=== PATIENT | female | born 1965 | race Caucasian/White ===

== ENCOUNTER → 2018-01-08 09:52 | Outpatient (CLI) | payer BC, SELFPAY ==
--- NOTE | 2018-01-08 09:54 | DI.RAD.S_ITS ---
PROCEDURE: XR KNEE RT 3V INDICATIONS: Chronic pain and problems with flexion TECHNIQUE: 3 views of the knee were acquired. COMPARISON: None. FINDINGS: Bones: No fractures or dislocations. No suspicious bony lesions. Mild narrowing of the medial joint space Soft tissues: No joint effusion. No suspicious soft tissue calcifications. IMPRESSION: Mild degenerative joint disease. Dictated by: Freddie Westfall M.D. on 01/08/2018 at 12:56 Approved by: Freddie Westfall M.D. on 01/08/2018 at 12:57
--- NOTE | 2018-01-08 09:54 | DI.RAD.S_ITS ---
PROCEDURE: XR KNEE LT 3V INDICATIONS: Chronic pain and problems with flexion TECHNIQUE: 3 views of the knee were acquired. COMPARISON: None. FINDINGS: Bones: No fractures or dislocations. No suspicious bony lesions. Mild narrowing of the medial lateral joint spaces, with subchondral sclerosis Soft tissues: No joint effusion. No suspicious soft tissue calcifications. IMPRESSION: Mild left knee joint degeneration. Dictated by: Freddie Westfall M.D. on 01/08/2018 at 12:55 Approved by: Freddie Westfall M.D. on 01/08/2018 at 12:56
== END ==
PROVIDERS: PCP Family Medicine; Visit Provider Nurse Practitioner Family
DX: M17.0 Bilateral primary osteoarthritis of knee (principal)
CPT/HCPCS: 73562

== ENCOUNTER → 2018-08-07 11:31 | Outpatient (CLI) | payer BC, SELFPAY ==
[2018-08-07 12:08] LABS: Add Manual Diff / Slide Review NO; Eosinophils Percent Auto 0.8 % (2-4); Hematocrit 44.9 % (36-46); Hemoglobin 15.7 g/dL (12.0-16.0); Lymphocytes Percent Auto 45.8 % (25-40); Mean Corpuscular Hemoglobin 30.5 PG (26-34); Mean Corpuscular Volume 87.2 fL (80-100); Monocytes Percent Auto 5.5 % (3-14); Neutrophils Absolute Auto 2300 /uL (1500-7000); Neutrophils Percent Auto 46.9 % (50-75); Platelet Count 197 X10^3/uL (150-400); Red Blood Cell Count 5.14 X10^6/uL (4.0-5.2); White Blood Cell Count 4.9 X10^3/uL (4.5-11.0)
[2018-08-07 12:33] LABS: Alanine Aminotransferase 35 IU/L (9-52); Albumin 4.2 g/dL (3.5-5.0); Albumin Globulin Ratio 1.7 (1.0-2.8); Alkaline Phosphatase 67 U/L (38-126); Aspartate Aminotransferase 27 IU/L (14-36); Bilirubin Total 0.7 mg/dL (0.2-1.3); Blood Urea Nitrogen 14 mg/dL (7-17); Calcium 9.4 mg/dL (8.4-10.2); Carbon Dioxide 28 mmol/L (22-32); Chloride 104 mmol/L (98-107); Cholesterol 185 mg/dL (140-199); Estimated Glomerular Filt Rate > 60.0 mL/min (>60); Globulin 2.5 g/dL (1.7-4.1); Glucose 84 mg/dL (70-100); HDL Cholesterol 60 mg/dL (40-60); HEMOLYSIS < 15 (0-50); LDL Cholesterol Calculated 104 mg/dL (<100); Potassium 4.5 mmol/L (3.4-5.1); Sodium 144 mmol/L (137-145); Total Protein 6.7 g/dL (6.3-8.2); Triglycerides 103 mg/dL (35-150)
[2018-08-07 12:46] LABS: Vitamin D 25 Hydroxy (D3) 66.6 ng/mL (30.0-100.0)
[2018-08-07 13:00] LABS: TSH w/ Reflex to FT4 1.06 uIU/mL (0.47-4.68)
== END ==
PROVIDERS: PCP Family Medicine; Visit Provider Family Medicine
DX: E03.9 Hypothyroidism, unspecified (principal); E78.1 Pure hyperglyceridemia; F32.9 Major depressive disorder, single episode, unspecified; M79.7 Fibromyalgia; G47.19 Other hypersomnia
CPT/HCPCS: 36415; 80053; 80061; 82306; 84443; 85014; 85018; 85025

== ENCOUNTER → 2019-04-12 11:39 | Outpatient (CLI) | payer BC, SELFPAY ==
--- NOTE | 2019-04-12 11:41 | DI.RAD.S_ITS ---
PROCEDURE: XR LUMBAR SPINE 2-3V INDICATIONS: l bp TECHNIQUE: 3 views of the lumbar spine were acquired. COMPARISON: [facility], , ABDOMEN COMPLETE, 01/26/2014, 8:53. FINDINGS: Bones: 5 ryh-rpx-[id number] vertebrae are present. Posterior fixation darwin present which is incompletely visualized extending to the L4 level. Moderate dextroscoliosis centered at the lower thoracic level. Multilevel disc degeneration, moderate to severe at L4-L5 and L5-S1 levels. Grade 1 retrolisthesis L5-S1. Moderate lower lumbar spine facet joint arthropathy. There is normal bony alignment. No vertebral body compression fractures. No suspicious bony lesions. Soft tissues: Overlying bowel gas pattern is normal. No suspicious soft tissue calcifications. 2.5 cm rounded, laminated upper quadrant calcification likely related to the known gallstone. IMPRESSION: 1. Posterior fixation. 2. Multilevel disc degeneration and lower lumbar spine facet joint arthropathy, most notably at the L4-L5 and L5-S1 levels. Dictated by: Vadim Ny [facility] Interpreted: Freddie Westfall MD on 04/12/2019 at 12:52 Approved by: Freddie Westfall M.D. on 04/12/2019 at 15:13
== END ==
PROVIDERS: PCP Family Medicine; Visit Provider Family Medicine
DX: M54.5 Low back pain (principal); M51.36 Other intervertebral disc degeneration, lumbar region; M51.37 Other intervertebral disc degeneration, lumbosacral region; M47.816 Spondylosis without myelopathy or radiculopathy, lumbar region; M47.817 Spondylosis without myelopathy or radiculopathy, lumbosacral region
CPT/HCPCS: 72100

== ENCOUNTER → 2020-02-07 11:50 | Outpatient (CLI) | payer BC, SELFPAY ==
[2020-02-07 13:11] LABS: Add Manual Diff / Slide Review NO; Basophils Absolute Auto 100 /uL (0-100); Basophils Percent Auto 1.4 % (0-2); Eosinophils Absolute Auto 0 /uL (0-450); Eosinophils Percent Auto 0.9 % (2-4); Hematocrit 43.3 % (36-46); Hemoglobin 14.8 g/dL (12.0-16.0); Lymphocytes Absolute Auto 1800 /uL (1100-4500); Lymphocytes Percent Auto 46.1 % (25-40); Mean Corpuscular HGB Conc 34.2 % (30-36); Mean Corpuscular Hemoglobin 30.4 PG (26-34); Mean Corpuscular Volume 88.8 fL (80-100); Monocytes Absolute Auto 200 /uL (0-900); Monocytes Percent Auto 6.3 % (3-14); Neutrophils Absolute Auto 1800 /uL (1500-7000); Neutrophils Percent Auto 45.3 % (50-75); Platelet Count 167 X10^3/uL (150-400); Red Blood Cell Count 4.88 X10^6/uL (4.0-5.2); Red Cell Distribution Width 13.3 % (11.6-14.8); White Blood Cell Count 3.9 X10^3/uL (4.5-11.0)
[2020-02-07 13:42] LABS: Alanine Aminotransferase 56 IU/L (<35); Albumin 4.3 g/dL (3.5-5.0); Albumin Globulin Ratio 1.6 (1.0-2.8); Alkaline Phosphatase 75 U/L (38-126); Aspartate Aminotransferase 43 IU/L (14-36); BUN Creatinine Ratio 27.5 (6-22); Bilirubin Total 1.1 mg/dL (0.2-1.3); Blood Urea Nitrogen 19 mg/dL (7-17); Calcium 9.2 mg/dL (8.4-10.2); Carbon Dioxide 26 mmol/L (22-32); Chloride 104 mmol/L (98-107); Cholesterol 221 mg/dL (140-199); Estimated Glomerular Filt Rate > 60.0 mL/min (>60); Globulin 2.7 g/dL (1.7-4.1); Glucose 85 mg/dL (70-100); HDL Cholesterol 48 mg/dL (40-60); HEMOLYSIS < 15 (0-50); LDL Cholesterol Calculated 149 mg/dL (<100); Potassium 4.4 mmol/L (3.4-5.1); Sodium 138 mmol/L (137-145); Triglycerides 122 mg/dL (35-150)
[2020-02-07 14:34] LABS: TSH w/ Reflex to FT4 2.06 uIU/mL (0.47-4.68)
== END ==
PROVIDERS: PCP Family Medicine; Referring Provider Family Medicine; Visit Provider Family Medicine
DX: E03.9 Hypothyroidism, unspecified (principal); E55.9 Vitamin D deficiency, unspecified
CPT/HCPCS: 36415; 80053; 80061; 82306; 84443; 85025

== ENCOUNTER → 2020-03-03 17:02 | Outpatient (CLI) | payer BC, SELFPAY ==
--- NOTE | 2020-03-03 17:04 | DI.MG.S_ITS ---
BILATERAL DIGITAL SCREENING MAMMOGRAM 3D/2D WITH CAD: 03/03/2020 CLINICAL: Routine screening. Comparison is made to exams dated: 06/09/2018 mammogram, 09/25/2016 mammogram, and 08/28/2016 mammogram - [facility]. The tissue of both breasts is heterogeneously dense. This may lower the sensitivity of mammography. Current study was also evaluated with a Computer Aided Detection (CAD) system. There are benign diffuse calcifications in both breasts. No significant masses, calcifications, or other findings are seen in either breast. There has been no significant interval change. IMPRESSION: There is no mammographic evidence of malignancy. A 1 year screening mammogram is recommended. This exam was interpreted at Station ID: [id number]. NOTE: For mammograms, a report in lay terms will be sent to the patient. Approximately 15% of breast malignancies will not be visualized mammographically. In the management of a palpable breast mass, a negative mammogram must not discourage biopsy of a clinically suspicious lesion. Electronically Signed By: Fawn de la cruz/sallie:03/03/2020 17:16:46 letter sent: Normal Exam ACR BI-RADS Category 2: Benign Finding(s) 3342F
== END ==
PROVIDERS: PCP Family Medicine; Referring Provider Family Medicine; Visit Provider Family Medicine
DX: Z12.31 Encounter for screening mammogram for malignant neoplasm of breast (principal)
CPT/HCPCS: 77063; 77067

== ENCOUNTER → 2020-09-25 11:25 | Outpatient (CLI) | payer BC, SELFPAY ==
[2020-09-25 13:31] LABS: Alanine Aminotransferase 36 IU/L (<35); Albumin 4.1 g/dL (3.5-5.0); Albumin Globulin Ratio 1.5 (1.0-2.8); Alkaline Phosphatase 70 U/L (38-126); Aspartate Aminotransferase 35 IU/L (14-36); BUN Creatinine Ratio 18.6 (6-22); Bilirubin Total 0.9 mg/dL (0.2-1.3); Blood Urea Nitrogen 13 mg/dL (7-17); Calcium 8.9 mg/dL (8.4-10.2); Carbon Dioxide 30 mmol/L (22-32); Chloride 103 mmol/L (98-107); Cholesterol 216 mg/dL (140-199); Estimated Glomerular Filt Rate > 60.0 mL/min (>60); Globulin 2.7 g/dL (1.7-4.1); Glucose 81 mg/dL (70-100); HDL Cholesterol 56 mg/dL (40-60); HEMOLYSIS < 15 (0-50); LDL Cholesterol Calculated 128 mg/dL (<100); Potassium 4.5 mmol/L (3.4-5.1); Sodium 136 mmol/L (137-145); Total Protein 6.8 g/dL (6.3-8.2); Triglycerides 162 mg/dL (35-150)
[2020-09-26 14:47] LABS: Vitamin D 25 Hydroxy (D3) 70.7 ng/mL (30.0-100.0)
== END ==
PROVIDERS: PCP Family Medicine; Referring Provider Family Medicine; Visit Provider Family Medicine
DX: E78.5 Hyperlipidemia, unspecified (principal); R79.89 Other specified abnormal findings of blood chemistry; E55.9 Vitamin D deficiency, unspecified
CPT/HCPCS: 36415; 80053; 80061; 82306

== ENCOUNTER → 2021-02-27 12:17 | Outpatient (CLI) | payer BC, SELFPAY ==
[2021-02-27 12:59] LABS: COVID19 -Nasal RAPID Negative (Negative)
== END ==
PROVIDERS: PCP Family Medicine; Visit Provider Family Medicine
DX: R05 Cough (principal); R51.9 Headache, unspecified; Z20.822 Contact with and (suspected) exposure to COVID-19
CPT/HCPCS: 87635

== ENCOUNTER → 2021-03-09 14:36 | Outpatient (CLI) | payer BC, SELFPAY ==
--- NOTE | 2021-03-09 14:37 | DI.RAD.S_ITS ---
PROCEDURE: XR SHOULDER RT MIN 2V INDICATIONS: shoulder pain TECHNIQUE: 3 views of the shoulder were acquired. COMPARISON: None. FINDINGS: Bones: No fractures or dislocations. No suspicious bony lesions. Visualized ribs appear intact. Mild joint space narrowing and periarticular osteophyte formation at the acromioclavicular and glenohumeral joints. Soft tissues: No suspicious soft tissue calcifications. IMPRESSION: Osteoarthritis. No acute fracture. No osseous lesion. If symptoms and/or clinical suspicion for pathology persist, further assessment with repeat, or advanced imaging (e.g., CT, MRI, or bone scan) may be helpful for further assessment. Dictated by: Eunice Torres M.D. on 03/09/2021 at 15:28 Approved by: Eunice Torres M.D. on 03/09/2021 at 15:29
== END ==
PROVIDERS: PCP Family Medicine; Referring Provider Family Medicine; Visit Provider Family Medicine
DX: M25.511 Pain in right shoulder (principal); M19.011 Primary osteoarthritis, right shoulder
CPT/HCPCS: 73030

== ENCOUNTER → 2021-04-03 09:47 | Outpatient (CLI) | payer BC, SELFPAY ==
--- NOTE | 2021-04-03 09:48 | DI.RAD.S_ITS ---
PROCEDURE: XR LUMBAR SPINE 2-3V INDICATIONS: Chronic back pain, hx scoliosis TECHNIQUE: 3 views of the lumbar spine were acquired. COMPARISON: [facility], CR, XR LUMBAR SPINE 2-3V, 04/12/2019, 11:46. FINDINGS: Bones: 5 [id number]-[id number] vertebrae are present. Mild dextroscoliosis centered at the lower thoracic level. Posterior fixation darwin present which is incompletely visualized extending to the L4 level. Multilevel disc degeneration, moderate to severe at the L4-L5 and L5-S1 levels. Multilevel grade 1 retrolisthesis redemonstrated. Moderate lower lumbar spine facet joint arthropathy. No vertebral body compression fractures. No suspicious bony lesions. Soft tissues: Overlying bowel gas pattern is normal. No suspicious soft tissue calcifications. 2.5 cm rounded, laminated gallstone redemonstrated. IMPRESSION: 1. Posterior thoracolumbar fixation. 2. Multilevel spondylosis which appears similar to prior examination. 3. Cholelithiasis redemonstrated. Dictated by: Vadim Ny [facility] Interpreted: Irwin Sheldon MD on 04/03/2021 at 10:09 Transcribed by: FELICITY on 04/03/2021 at 10:12 Approved by: Irwin Sheldon M.D. on 04/03/2021 at 10:43
== END ==
PROVIDERS: PCP Family Medicine; Referring Provider Family Medicine; Visit Provider Family Medicine
DX: M54.9 Dorsalgia, unspecified (principal); M41.84 Other forms of scoliosis, thoracic region; M47.816 Spondylosis without myelopathy or radiculopathy, lumbar region; K80.20 Calculus of gallbladder without cholecystitis without obstruction; G89.29 Other chronic pain
CPT/HCPCS: 72100

== ENCOUNTER → 2021-05-21 12:49 | Outpatient (CLI) | payer BC, SELFPAY ==
[2021-05-21 14:23] LABS: TSH w/ Reflex to FT4 0.53 uIU/mL (0.47-4.68)
== END ==
PROVIDERS: PCP Family Medicine; Referring Provider Family Medicine; Visit Provider Family Medicine
DX: E03.9 Hypothyroidism, unspecified (principal)
CPT/HCPCS: 84443

== ENCOUNTER → 2022-03-18 09:21 | Outpatient (CLI) | payer BC, SELFPAY ==
--- NOTE | 2022-03-18 09:22 | DI.MG.S_ITS ---
BILATERAL DIGITAL SCREENING MAMMOGRAM 3D/2D WITH CAD: 03/18/2022 CLINICAL: Routine screening. Comparison is made to exams dated: 03/03/2020 mammogram - [facility], 06/09/2018 mammogram, and 08/28/2016 mammogram - [facility]. The tissue of both breasts is heterogeneously dense. This may lower the sensitivity of mammography. Current study was also evaluated with a Computer Aided Detection (CAD) system. There is a focal asymmetry in the left breast at 9 o'clock posterior depth. This is more prominent. Scattered calcifications bilaterally are stable. No other significant masses, calcifications, or other findings are seen in either breast. IMPRESSION: INCOMPLETE: NEEDS ADDITIONAL IMAGING EVALUATION The focal asymmetry in the left breast is indeterminate. Additional views with possible ultrasound are recommended. Based on the Tyrer Cuzick model (a risk assessment model) the patient's lifetime risk is 6.1% and her 10 year risk is 2.2%. According to the ACR, ACS, and NCCN guidelines, an annual breast MRI exam along with mammogram is recommended if the patient's lifetime risk is 20% or greater. This exam was interpreted at Station ID: [id number]. NOTE: For mammograms, a report in lay terms will be sent to the patient. Approximately 15% of breast malignancies will not be visualized mammographically. In the management of a palpable breast mass, a negative mammogram must not discourage biopsy of a clinically suspicious lesion. Electronically Signed By: Gualberto Whitehead M.D. [facility] [place] [place]/:03/18/2022 12:22:39 letter sent: Additional Imaging Needed ACR BI-RADS Category 0: Incomplete 3340F
== END ==
PROVIDERS: PCP Family Medicine; Referring Provider Family Medicine; Visit Provider Family Medicine
DX: Z12.31 Encounter for screening mammogram for malignant neoplasm of breast (principal)
CPT/HCPCS: 77063; 77067

== ENCOUNTER → 2022-04-01 12:59 | Outpatient (CLI) | payer BC, SELFPAY ==
--- NOTE | 2022-04-01 | DI.MG.S_ITS ---
UNILATERAL LEFT DIGITAL DIAGNOSTIC MAMMOGRAM 3D/2D WITH ADDITIONAL VIEWS: 04/01/2022 CLINICAL: Additional evaluation requested from prior study. Comparison is made to exams dated: 03/18/2022 mammogram, 03/03/2020 mammogram - [facility], and 06/09/2018 mammogram - [facility]. The tissue of left breast is heterogeneously dense. This may lower the sensitivity of mammography. There are multiple clusters of focal asymmetries with grouped fine calcifications in the left breast inferior medial quadrant posterior depth. No other significant masses or calcifications are seen in the breast. IMPRESSION: INCOMPLETE: NEEDS ADDITIONAL IMAGING EVALUATION The multiple clusters of focal asymmetries in the left breast most likely are clustered cysts or fibrocystic change and are indeterminate. An ultrasound is recommended. Based on the Tyrer Cuzick model (a risk assessment model) the patient's lifetime risk is 6.1% and her 10 year risk is 2.2%. According to the ACR, ACS, and NCCN guidelines, an annual breast MRI exam along with mammogram is recommended if the patient's lifetime risk is 20% or greater. This exam was interpreted at Station ID: [id number]. NOTE: For mammograms, a report in lay terms will be sent to the patient. Approximately 15% of breast malignancies will not be visualized mammographically. In the management of a palpable breast mass, a negative mammogram must not discourage biopsy of a clinically suspicious lesion. Electronically Signed By: Zac Rosa M.D., jr/sallie:04/01/2022 14:42:39 ACR BI-RADS Category 0: Incomplete 3340F
--- NOTE | 2022-04-01 13:00 | DI.US.S_ITS ---
LIMITED ULTRASOUND OF LEFT BREAST AND AXILLA: 04/01/2022 CLINICAL: Patient returns today to evaluate asymmetries in the left breast. No prior exams were available for comparison. Color flow and real-time ultrasound of the left breast outer aspect, retroareolar, and axilla regions were performed. Cain scale images of the real-time examination were reviewed. There are multiple benign clusters of complicated cysts in the left breast inferior medial quadrant posterior depth. There are related micro calcifications. IMPRESSION: BENIGN There is no sonographic evidence of malignancy. The multiple clusters of complicated cysts in the left breast are benign. A 1 year screening mammogram is recommended. This exam was interpreted at Station ID: [id number]. Electronically Signed By: Zac Rosa M.D., jr/sallie:04/01/2022 14:43:24 letter sent: Normal Exam Ultrasound BI-RADS: 2 Benign
--- NOTE | 2022-04-01 13:00 | DI.MRI.S_ITS ---
PROCEDURE: MR LUMBAR SPINE WO CON INDICATIONS: rt leg pain and weekness TECHNIQUE: Noncontrast sagittal T1 spin echo and T2 fast echo, sagittal STIR, and T2 fast spin echo through the lumbar spine. In cases with scoliosis, additional coronal T2 fast spin echo may be performed. COMPARISON: [facility], CR, XR LUMBAR SPINE 2-3V, 04/03/2021, 9:43. FINDINGS: Image quality: Excellent. Alignment and Curvature: There is normal bony alignment. Convex right curvature of the thoracolumbar spine. Bones: Modic type 2 reactive endplate changes noted adjacent to the L4-L5 disc. Modic type 1 reactive endplate changes noted adjacent to the L5-S1 disc. Benign, intraosseous hemangioma is noted in the L1 and L3 vertebral bodies. Postsurgical changes compatible with thoracolumbar spine osseous posterior fusion and placement of thoracolumbar spine posterior fixation darwin with left L4 sublaminar hook. No acute vertebral body compression fractures. Spinal Cord: Conus medullaris terminates at the L1 level. Visualized cord demonstrates normal signal and size. Paraspinous Soft Tissues: No paravertebral masses. T12-L1: Normal appearance. L1-L2: Normal appearance. L2-L3: Normal appearance. L3-L4: Normal appearance. L4-L5: Loss of disc signal and height. Moderate, diffuse disc bulge. Moderate bilateral facet hypertrophy. Mild narrowing of the central canal. Moderate right and severe left neural foraminal narrowing with compression of the exiting left L4 nerve. L5-S1: Loss of disc signal and height. Moderate, diffuse disc bulge. Mild bilateral facet hypertrophy. Mild narrowing of the central canal. Severe bilateral neural foraminal narrowing with compression of the exiting L5 nerve roots. IMPRESSION: 1. Postsurgical changes. 2. Multilevel degenerative disc disease. 3. Multilevel facet arthropathy. 4. No severe central canal narrowing. 5. Severe bilateral L5-S1 neural foraminal narrowing with compression of the exiting L5 nerve roots. Severe left L4-L5 neural foraminal narrowing with compression of the exiting left L4 nerve root. 6. Convex right thoracolumbar spine scoliosis. Dictated by: Charlene Moran MD, PhD on 04/03/2022 at 10:11 Approved by: Charlene Moran MD, PhD on 04/03/2022 at 10:16
== END ==
PROVIDERS: PCP Family Medicine; Referring Provider Family Medicine; Visit Provider Family Medicine
DX: R92.8 Other abnormal and inconclusive findings on diagnostic imaging of breast (principal); M51.16 Intervertebral disc disorders with radiculopathy, lumbar region; M51.17 Intervertebral disc disorders with radiculopathy, lumbosacral region; M47.26 Other spondylosis with radiculopathy, lumbar region; N60.02 Solitary cyst of left breast; M47.27 Other spondylosis with radiculopathy, lumbosacral region; M48.061 Spinal stenosis, lumbar region without neurogenic claudication; M48.07 Spinal stenosis, lumbosacral region; M41.86 Other forms of scoliosis, lumbar region
CPT/HCPCS: 72148; 76642; 77065; G0279

== ENCOUNTER → 2023-01-16 10:33 | Outpatient (CLI) | payer BC, SELFPAY ==
[2023-01-16 11:27] LABS: Add Manual Diff / Slide Review NO; Basophils Absolute Auto 100 /uL (0-100); Basophils Percent Auto 1.1 % (0-2); Eosinophils Absolute Auto 0 /uL (0-450); Eosinophils Percent Auto 0.8 % (2-4); Hematocrit 44.1 % (36-46); Lymphocytes Absolute Auto 2400 /uL (1100-4500); Lymphocytes Percent Auto 49.7 % (25-40); Mean Corpuscular HGB Conc 34.1 % (30-36); Monocytes Absolute Auto 300 /uL (0-900); Neutrophils Absolute Auto 2000 /uL (1500-7000); Neutrophils Percent Auto 41.4 % (50-75); Platelet Count 190 X10^3/uL (150-400); Red Blood Cell Count 5.01 X10^6/uL (4.0-5.2); White Blood Cell Count 4.8 X10^3/uL (4.5-11.0)
[2023-01-16 11:28] LABS: Iron 140 ug/dL (37-170)
[2023-01-16 11:48] LABS: Vitamin D 25 Hydroxy (D3) 72.6 ng/mL (30.0-100.0)
[2023-01-16 11:50] LABS: Alanine Aminotransferase 37 IU/L (<35); Albumin 4.3 g/dL (3.5-5.0); Albumin Globulin Ratio 1.4 (1.0-2.8); Alkaline Phosphatase 87 U/L (38-126); Aspartate Aminotransferase 37 IU/L (14-36); BUN Creatinine Ratio 21.3 (6-22); Bilirubin Total 1.2 mg/dL (0.2-1.3); Blood Urea Nitrogen 16 mg/dL (7-17); Calcium 9.1 mg/dL (8.4-10.2); Carbon Dioxide 28 mmol/L (22-32); Chloride 104 mmol/L (98-107); Cholesterol 236 mg/dL (140-199); Estimated Glomerular Filt Rate > 60 mL/min (>60); Glucose 95 mg/dL (70-100); HDL Cholesterol 51 mg/dL (40-60); HEMOLYSIS < 15 (0-50); LDL Cholesterol Calculated 155 mg/dL (<100); Potassium 4.3 mmol/L (3.4-5.1); Sodium 138 mmol/L (137-145); Total Protein 7.3 g/dL (6.3-8.2); Triglycerides 149 mg/dL (35-150)
[2023-01-16 12:00] LABS: TSH w/ Reflex to FT4 0.78 uIU/mL (0.47-4.68)
[2023-01-16 12:20] LABS: Ferritin 61 ng/mL (11-264)
== END ==
PROVIDERS: PCP Family Medicine; Referring Provider Family Medicine; Visit Provider Family Medicine
DX: E03.9 Hypothyroidism, unspecified (principal); E55.9 Vitamin D deficiency, unspecified; F32.9 Major depressive disorder, single episode, unspecified; G47.30 Sleep apnea, unspecified; M54.16 Radiculopathy, lumbar region
CPT/HCPCS: 36415; 80053; 80061; 82306; 82728; 83540; 84443; 85025

== ENCOUNTER 2023-03-10 09:59 | Day surgery (SDC) | payer BC, SELFPAY ==
--- NOTE | 2023-03-10 | PATH_ITS ---
[facility] Accession Number: [id number] No. of containers..02 Tissue . 01 Material submitted: . PART A: hepatic flexure - HEPTIC FLEXURE BIOPSY #1 PART B: hepatic flexure - HEPATIC FLEXURE #2 . 01 Diagnosis: A. Hepatic Flexure Colon Polyp #1, Biopsy: Sessile serrated adenoma. . B. Hepatic Flexure Colon Polyp #2, Biopsy: Sessile serrated adenoma. [facility] 03/17/2023 1151 Local . 01 Electronically signed: . Zoey Reza MD, Pathologist NPI- [id number] . 01 Gross description: . A. Received in formalin labeled with the patient's name, and hepatic flexure biopsy #1 consists of multiple velazquez soft tissue fragments aggregating to 2.2 x 1.3 x 0.2 cm. Filtered and submitted entirely in cassette A1. B. Received in formalin labeled with the patient's name, and hepatic flexure biopsy #2 consists of a single velazquez soft tissue fragment measuring 0.5 cm in greatest dimension. Submitted entirely in cassette B1. ([id number]) /MRV 03/13/2023 1846 Local . 01 Pathologist provided ICD-10: D12.3 . 01 CPT . 270115, [id number] Specimen Comment: A courtesy copy of this report has been sent to [phone] Performed at: 01 [facility] [address] [place] [address], [place], [place] [id number] MD Kartik Valentino MD Phone: [phone]
[2023-03-10 10:12] VITALS: BP 123/67; PULSE 64; RESP 16; TEMP 36.3; O2SAT 99; BMI 22.5
[2023-03-10] MEDS: LACTATED RINGERS 1,000 ML 125 ML IV (10:19)
--- NOTE | 2023-03-10 10:29 | P.HP_ITS ---
History of Present Illness History of Present Illness Date Patient Seen: 03/10/23 Time Patient Seen: 10:29 Chief complaint: Colonoscopy Narrative: Colon cancer screening, last scope was 10 years ago. No family history or symptoms of concern [facility] Medical History Acne (~1980) Anxiety (~2013) Carpal tunnel syndrome (~1995) Chicken pox (~1966) Chronic back pain (~1996) Depression (~1986) Fibroids (~1990) Fibromyalgia Headache (~1993) Hypothyroidism (~2002) Migraines (~1999) Osteoarthritis Scoliosis Sleep apnea (~2011) Surgical History Anesthesia Deviated septum (~2012) History of carpal tunnel repair (~2014) History of lumbosacral spine surgery History of tonsillectomy (~1966) Status post dilation and curettage (~1990) Family History Brother Age: 60 Heart disease Brother Age: 45 Essential hypertension High cholesterol Mental health problem Child Age: 36 Mental health problem Father Age: 86 Heart disease History of shingles Mother Age: 85 Mental health problem Grandmother Diabetes mellitus Arthritis Sister Age: 52 Mental health problem Social History marital status: household members: spouse Smoking Status: Never smoker alcohol intake: never substance use type: does not use during the past year weight has: remained stable well-balanced diet: daily or most days caffeine: No Type(s) of exercise: walking, bicycling, yoga and additional Meds Home Medications and Allergies Home Medications Medication Instructions Recorded Confirmed Type diclofenac sodium 75 mg See Rx Instructions .Route 05/20/22 03/10/23 Rx tablet,delayed release .COMPLEX #180 tabs escitalopram oxalate 10 mg tablet 10 mg PO DAILY #90 tabs 06/10/22 03/10/23 Rx estradiol 10 mcg vaginal tablet 10 mcg vaginal .COMPLEX 2 weeks 09/05/22 03/10/23 Rx (Vagifem) #90 tabs levothyroxine 88 mcg tablet See Rx Instructions .Route 02/03/23 03/10/23 Rx (Synthroid) .COMPLEX #90 tabs Allergies Allergy/AdvReac Type Severity Reaction Status Date / Time meperidine [From DEMEROL] Allergy Unknown hallucinati Verified 01/16/23 09:41 ons Review of Systems Review of Systems ROS: Yes All systems reviewed with the patient and are negative except as othe rwise documented Exam Vital Signs (past 8 hours): - 03/10/23 10:12 Temperature 97.4 F L Pulse Rate 64 Respiratory Rate 16 Blood Pressure 123/67 Pulse Oximetry 99 Oxygen Delivery Method Room Air Oxygen Delivery Method Room Air Const General: cooperative, healthy appearing and comfortable HENMO Ears: hearing grossly normal bilaterally Eyes General: appearance normal, both eyes and all related structures Sclera: sclerae normal Neck Neck: trachea midline Resp Effort & Inspection: normal respiratory effort and able to speak in complete sentences Cardio Rate: regular rate Rhythm: regular rhythm GI Inspection: normal to inspection Palpation: soft Skin General: elasticity normal and turgor normal Neuro General: patient alert, patient awake and patient oriented x3 Cognition: normal cognition Psych Mental Status: mental status grossly normal Judgment: judgment good Assessment & Plan Assessment & Plan narrative: Colon cancer screening colonoscopy with MAC Time Spent With Patient Time with patient: less than 30 minutes
--- NOTE | 2023-03-10 11:33 | PM.OP.COLON ---
Operative Date/Time/Diagnoses Date of procedure: 03/10/23 Time of procedure: 11:33 Pre-op diagnosis: Colon cancer screening Post-op diagnosis: same Procedure & Clinicians Study performed: Colonoscopy with hot snare and cold forceps biopsies under MAC Same procedure as scheduled: Yes Indications: Colon cancer screening Surgeon: Mili Henriquez Procedure Notes Procedure in detail: Preop diagnosis: Colon cancer screening Postop diagnosis: Same Operative procedure: Colonoscopy with hot snare and cold forceps biopsies under MAC Surgeon: Susana Henriquez MD Findings normal-appearing colon with the exception of a ulcerated mass at the hepatic flexure that was taken with hot snare along with an associated sessile polyp taken with cold forceps biopsies. Tattooing performed on the ulcerated mass. Mass size is approximately 3 cm, flat, curled edges. Procedure: Patient placed in a lateral position. Rectal exam performed showing normal tone no masses. Colonoscope inserted into the rectum and advanced to ileocecal valve with minimal difficulty. Insufflation and extraction of the scope and the above findings. Impression: Ulcerated mass 3 cm with rolled edges in the hepatic flexure along with a smaller sessile polyp 2-3 mm in size in the same area. No diverticulosis. No other abnormalities Plan: Repeat colonoscopy determined by pathology. Findings: polyp(s) (Hepatic flexure, 2-3 mm sessile polyp) and possible cancer (Hepatic flexure 3-4 cm ulcerated mass with curled edges) Specimen(s): other (Hepatic flexure mass and polyp as above) Complications: none Post-procedure Recommendations: Other recommendation(s) (Await biopsy results to determine next colonoscopy) Follow up: weeks (one week with Brittni) Disposition: PACU
[2023-03-10 11:34] VITALS: BP 88/48; PULSE 70; RESP 14; TEMP 36.4; O2SAT 99
[2023-03-10 11:38] VITALS: BP 103/73; PULSE 70; RESP 22; O2SAT 99
[2023-03-10 11:43] VITALS: BP 112/73; PULSE 63; RESP 16; O2SAT 100
[2023-03-10 11:46] VITALS: BP 112/70; PULSE 65; RESP 16; O2SAT 100
== END 2023-03-10 12:09 | disposition home or self-care (01) ==
PROVIDERS: Surgery; PCP Family Medicine; Referring Provider Surgery; Visit Provider Surgery
PROC: 0DJD8ZZ Inspection of Lower Intestinal Tract, Via Natural or Artificial Opening Endoscopic (ICD-10-PCS; CPT 45378; principal; 2023-03-10 11:00)
DX: Z12.11 Encounter for screening for malignant neoplasm of colon (principal); D12.3 Benign neoplasm of transverse colon
CPT/HCPCS: 45385; 45380; J2704

== ENCOUNTER → 2023-03-18 09:06 | Outpatient (CLI) | payer BC, SELFPAY ==
[2023-03-18 10:19] LABS: Add Manual Diff / Slide Review NO; Basophils Absolute Auto 100 /uL (0-100); Basophils Percent Auto 1.1 % (0-2); Eosinophils Absolute Auto 100 /uL (0-450); Eosinophils Percent Auto 1.4 % (2-4); Hemoglobin 14.1 g/dL (12.0-16.0); Lymphocytes Absolute Auto 2000 /uL (1100-4500); Lymphocytes Percent Auto 45.5 % (25-40); Mean Corpuscular HGB Conc 34.3 % (30-36); Mean Corpuscular Volume 87.3 fL (80-100); Monocytes Absolute Auto 300 /uL (0-900); Monocytes Percent Auto 7.9 % (3-14); Neutrophils Absolute Auto 1900 /uL (1500-7000); Neutrophils Percent Auto 44.1 % (50-75); Platelet Count 191 X10^3/uL (150-400); Red Cell Distribution Width 12.9 % (11.6-14.8); White Blood Cell Count 4.4 X10^3/uL (4.5-11.0)
[2023-03-18 10:29] LABS: Alanine Aminotransferase 33 IU/L (<35); Albumin Globulin Ratio 1.5 (1.0-2.8); Alkaline Phosphatase 85 U/L (38-126); Aspartate Aminotransferase 34 IU/L (14-36); BUN Creatinine Ratio 18.4 (6-22); Bilirubin Total 0.8 mg/dL (0.2-1.3); Blood Urea Nitrogen 14 mg/dL (7-17); Calcium 9.1 mg/dL (8.4-10.2); Carbon Dioxide 29 mmol/L (22-32); Chloride 102 mmol/L (98-107); Estimated Glomerular Filt Rate > 60 mL/min (>60); Globulin 2.6 g/dL (1.7-4.1); Glucose 85 mg/dL (70-100); HEMOLYSIS < 15 (0-50); Sodium 139 mmol/L (137-145); Total Protein 6.6 g/dL (6.3-8.2)
[2023-03-20 00:28] LABS: Cancer (Carbohydrate) Ag 19-9 26 U/mL (0-35)
== END ==
PROVIDERS: PCP Family Medicine; Referring Provider Family Medicine; Visit Provider Family Medicine
DX: K63.89 Other specified diseases of intestine (principal)
CPT/HCPCS: 36415; 80053; 82378; 85025; 86301

== ENCOUNTER → 2023-05-05 08:17 | Outpatient (CLI) | payer BC, SELFPAY ==
--- NOTE | 2023-05-05 08:18 | DI.RAD.S_ITS ---
PROCEDURE: XR LUMBAR SPINE MIN 4V INDICATIONS: BACK PAIN TECHNIQUE: 5 views of the lumbar spine were acquired, including bilateral oblique views. COMPARISON: [facility], CR, XR LUMBAR SPINE 2-3V, 04/03/2021, 9:43. FINDINGS: Bones: There are 5 lumbar vertebral bodies. Left-sided Rizvi darwin is redemonstrated. There is bony fusion of the left-sided posterior elements. Trace retrolisthesis is redemonstrated at L3-4, similar in extent to the study dated April 03, 2021. No acute compression deformity. Degenerative changes at L5-S1 of increased in severity when compared with the 2020 study. Soft tissues: Overlying bowel gas pattern is normal. No suspicious soft tissue calcifications. Oblique images: No pars defects where visualized. L5-S1 is difficult to characterize given degenerative change in bony fusion. IMPRESSION: 1. Stable postoperative change and L3-4 retrolisthesis. 2. No spondylolysis where visualized. L5-S1 is difficult to characterize. 3. Increased degenerative changes at L5-S1 when compared with the study from 2020. Dictated by: Meredith Harden M.D. on 05/05/2023 at 9:15 Approved by: Meredith Harden M.D. on 05/05/2023 at 9:18
--- NOTE | 2023-05-05 10:35 | DI.RAD.S_ITS ---
PROCEDURE: XR THORACIC SPINE 3V INDICATIONS: Status post Rizvi darwin placement TECHNIQUE: 3 views of the thoracic spine were acquired. COMPARISON: None. FINDINGS: Bones: No fractures or dislocations. Left peritoneal darwin present. Right convexity curvature thoracic spine. Multilevel degenerative changes of the thoracic spine. Soft tissues: No paravertebral stripe thickening. IMPRESSION: No thoracic spine fracture visualized. Right convexity curvature thoracic spine. Left Rizvi darwin present. Dictated by: Jose Avery M.D. on 05/05/2023 at 16:46 Approved by: Jose Avery M.D. on 05/05/2023 at 16:47
--- NOTE | 2023-05-05 10:35 | DI.RAD.S_ITS ---
PROCEDURE: XR CERVICAL SPINE 4V OR 5V INDICATIONS: Cervical stenosis status post Rizvi darwin placement TECHNIQUE: 5 views of the cervical spine acquired. COMPARISON: None. FINDINGS: Bones: No fractures or dislocations to the C7 level. Straightening of the normal cervical lordosis, a finding which can be seen in the setting of muscle strain and/or spasm. Severe multilevel degenerative changes with disc height loss, endplate spurring, and facet arthropathy. Mild multilevel foraminal narrowing on oblique views. Soft tissues: No prevertebral soft tissue swelling. IMPRESSION: Degenerative changes of the cervical spine. Dictated by: Jose Avery M.D. on 05/05/2023 at 16:43 Approved by: Jose Avery M.D. on 05/05/2023 at 16:46
== END ==
PROVIDERS: PCP Family Medicine; Referring Provider Physical Medicine & Rehabilitation; Visit Provider Physical Medicine & Rehabilitation
DX: M47.27 Other spondylosis with radiculopathy, lumbosacral region (principal); M43.16 Spondylolisthesis, lumbar region; M47.812 Spondylosis without myelopathy or radiculopathy, cervical region; M47.814 Spondylosis without myelopathy or radiculopathy, thoracic region; M41.9 Scoliosis, unspecified; M48.02 Spinal stenosis, cervical region; M48.04 Spinal stenosis, thoracic region
CPT/HCPCS: 72050; 72072; 72110

== ENCOUNTER 2023-05-08 08:46 | Outpatient (CLI) | payer BC, SELFPAY ==
[2023-05-08] VITALS (7 sets, daily range): BP systolic 108–142; BP diastolic 68–89; PULSE 51–70; RESP 16–19; TEMP 36.1; O2SAT 97–100
--- NOTE | 2023-05-08 08:47 | DI.RAD.S_ITS ---
PROCEDURE: PAIN L INTERLAMINAR/CAUDAL INJ INDICATIONS: SPONDYLOSIS COMPARISON: [facility], MR, MR LUMBAR SPINE WO CON, 04/01/2022, 13:04. [facility], CR, XR LUMBAR SPINE MIN 4V, 05/05/2023, 8:23. FINDINGS: Fluoroscopic spot filming was performed to verify placement of spinal needles at the L5-S1 level(s), as labeled on the films. Appropriate location(s) of the needle tip(s) was confirmed by injection of iodinated contrast. Note is made of postsurgical changes in the lower lumbar spine. IMPRESSION: Fluoroscopy for pain management. Dictated by: Kashif Lynch M.D. on 05/08/2023 at 10:03 Approved by: Kashif Lynch M.D. on 05/08/2023 at 10:04
[2023-05-08] MEDS: MIDAZOLAM 2 MG/2 ML VIAL IV (09:38)
[2023-05-08] MEDS: DEXAMETHASONE 10 MG/ML VIAL INJ (09:42)
[2023-05-08] MEDS: BUPIVACAINE 0.25% (PF) VIAL 2 ML INJ (09:42)
[2023-05-08] MEDS: BETAMETHASONE 30 MG/5 ML MDV 6 MG INJ (09:42)
[2023-05-08] MEDS: IOPAMIDOL 15 ML VIAL 3 ML INJ (09:43)
--- NOTE | 2023-05-08 09:54 | P.PCN_ITS ---
Date/Time/Diagnoses Date of procedure: 05/08/23 Time of procedure: 09:54 Pre-procedure diagnosis: 1. HNP WITH RADICULAR FEATURES, 2. MULTILEVEL CENTRAL STENOSIS, Post-procedure diagnosis: same Procedure Notes Procedure: 1. FLUOROSCOPICALLY GUIDED CONTRAST CONTROLLED INTERLAMINAR EPIDURAL STEROID INJECTION - L5/S1 Indications: Marcia is referred by Dr. Mccallum for treatment of Bilateral Foraminal Stenosis L>R LE symptoms. Physician: Eyad Nunez Total Fluoroscopy time (seconds): 13 Total sedation minutes: 12 Complications: none Procedure in detail & Post-procedure care: FINDINGS Multilevel Central Spinal Stenosis with Nerve Root Compression DESCRIPTION OF PROCEDURE Fluoroscopically guided, contrast-controlled L5/S1 translaminar epidural steroid injection. Following review of allergy and review of potential side effects and complications, including, but not necessarily limited to, infection, allergic reaction, local tissue breakdown, temporary as well as permanent nerve injury, paralysis, stroke and possible , the patient indicated that the patient understood and agreed to proceed. An informed consent document was signed by the patient, witnessed by a nurse, and placed in the patient's chart. Additionally, other treatment options including modalities, medications, and physical therapy were reviewed with the patient. After review of previous anaesthesic history and IV conscious sedation the patient was deemed safe to proceed with today?s procedure with IV conscious sedation as ASA class II designation. Safety time-out was performed to confirm patient ID, procedure to be performed and site of procedure. IV sedation was accomplished with a combination of 2mg of Versed administered by the RN after DO order, titrated to patient comfort during the course of the procedure while the patient remained responsive to all verbal commands. In the prone position, following sterile prep and drape of the lumbar region, the L5/S1 translaminar space was identified fluoroscopically. The skin was anesthetized via a 25-gauge, 1.5-inch needle with 1% lidocaine solution. At this point, a 22-gauge short bevel spinal needle was atraumatically introduced and advanced under fluoroscopic guidance into the region of the L5/S1 translaminar space. Depth was confirmed on lateral view. Radiological data, including multiple fluoroscopic views of the lumbar spine, reveal a spinal needle at the L5/S1 translaminar space. Lateral views then show placement of the needle in the epidural space. Subsequent views show contrast material flowing superiorly and inferiorly in the epidural space. No vascular or intrathecal uptake is observed. At this point, using loss of resistance technique with saline and air, the epidural space was entered. This was confirmed following negative aspiration with injection of approximately 1.5cc of Isovue 200, showing excellent epidural flow without vascular or intrathecal uptake. At this point, 1 cc of 1% lidocain e solution combined with 2cc or 10mg of dexamethasone and 6mg of betamethasone was injected without incident. The patent tolerated the procedure without signs of symptoms of complications prior to transfer to the recovery area for further monitoring. The patient was then transferred to the recovery area where they were observed for an appropriate period of time after the injection. The patient reported a VAS score of 6 prior to the procedure and a post-procedure VAS of 0. POST OP INSTRUCTIONS The patient was provided a Pain Log to continue to record their response to the target-specific procedure prior to follow-up visit with their referring physician. Additionally, specific post-injection care instructions and a contact number to our office were provided if concerns arise regarding possible complications associated with the procedure are suspected.
== END 2023-05-08 10:12 | disposition home or self-care (01) ==
LOC: RAD 08:47
PROVIDERS: PCP Family Medicine; Referring Provider Physical Medicine & Rehabilitation; Visit Provider Physical Medicine & Rehabilitation
DX: M51.17 Intervertebral disc disorders with radiculopathy, lumbosacral region (principal); M48.07 Spinal stenosis, lumbosacral region
CPT/HCPCS: 62323; 99152; J0702; J1100; J2250

== ENCOUNTER → 2023-05-26 09:16 | Outpatient (CLI) | payer BC, SELFPAY ==
--- NOTE | 2023-05-26 09:33 | DI.MRI.S_ITS ---
PROCEDURE: MR CERVICAL SPINE WO CON INDICATIONS: Cervical stenosis status post Rizvi darwin placement TECHNIQUE: Noncontrast sagittal T1 spin echo and T2 fast spin echo, sagittal STIR, foraminal oblique sagittal T2 fast spin echo, and axial gradient echo or T2 fast spin echo through the cervical spine. COMPARISON: None. FINDINGS: Image quality: Susceptibility artifact arises from spinal instrumentation in the thoracic spine Alignment and Curvature: Grade 1 anterior spondylolisthesis at T2-3, incidentally noted. There is straightening of the normal cervical lordosis Bone Marrow: Marrow demonstrates normal overall signal. Spinal Cord: Visualized spinal cord has normal size and signal. No cerebellar tonsillar herniation. Paraspinous Soft Tissues: No paravertebral masses. Prevertebral soft tissues are normal in thickness. C2-C3: Normal appearance. C3-C4: Normal appearance. C4-C5: Disc space narrowing with posterior disc osteophyte complex results in [id number] central stenosis with flattening the ventral surface of the cord. No foraminal stenosis. C5-C6: Disc space narrowing with posterior disc osteophyte complex results in moderate central stenosis. Hypertrophic uncovertebral joints results in severe left and no right foraminal stenosis. C6-C7: Disc space narrowing and posterior disc osteophyte complex results in mild central stenosis. Moderate left and mild right foraminal stenosis. C7-T1: Disc space is preserved. No central or foraminal stenosis. IMPRESSION: Multilevel degenerative disc disease and arthropathy results in varying degrees of central and foraminal stenosis including moderate central and severe left foraminal stenosis at C5-6. Incidental grade 1 anterior spondylolisthesis at T2-3, partially imaged Approved by: Krishna Lamb M.D. on 05/26/2023 at 14:57
== END ==
PROVIDERS: PCP Family Medicine; Referring Provider Physical Medicine & Rehabilitation; Visit Provider Physical Medicine & Rehabilitation
DX: M48.04 Spinal stenosis, thoracic region (principal); M43.14 Spondylolisthesis, thoracic region; M50.322 Other cervical disc degeneration at C5-C6 level; M47.812 Spondylosis without myelopathy or radiculopathy, cervical region; M48.02 Spinal stenosis, cervical region; Z98.890 Other specified postprocedural states
CPT/HCPCS: 72141

== ENCOUNTER 2023-07-16 06:31 | Inpatient (IN) | payer BC, SELFPAY ==
[2023-07-08 08:30] VITALS: BMI 22.0
--- NOTE | 2023-07-15 12:57 | PM.HP.1 ---
History of Present Illness History of Present Illness Date Patient Seen: 07/16/23 Chief complaint: Laparoscopically Assisted Colectomy 07/16 Narrative: 58 y.o woman with a 3cm ulcerated mass of the hepatic flexure here for elective right hemicolectomy. 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 Endoscopic resection of the polyp was incomplete and given the discrepency between the appearance of the polyp and pathological findings she elects to proceed with laparoscopic right hemicolectomy. [facility] Medical History History of COVID-19 (2020) Low back pain Thoracic stenosis Lumbar stenosis with neurogenic claudication Facet arthropathy, lumbar Cervical stenosis of spinal canal Osteoarthritis Sleep apnea (~2011) Depression (~1986) Anxiety (~2013) Migraines (~1999) Headache (~1993) Scoliosis Chronic back pain (~1996) Carpal tunnel syndrome (~1995) Acne (~1980) Chicken pox (~1966) Fibroids (~1990) Hypothyroidism (~2002) Carpal tunnel syndrome (03/02/15) Bunion (03/02/15) Surgical History Anesthesia Deviated septum (~2012) History of lumbosacral spine surgery History of carpal tunnel repair (~2014) Status post dilation and curettage (~1990) History of tonsillectomy (~1966) Family History Brother Age: 60 Heart disease Brother Age: 45 Essential hypertension High cholesterol Mental health problem Child Age: 36 Mental health problem Father Age: 86 Heart disease History of shingles Mother Age: 85 Mental health problem Grandmother Diabetes mellitus Arthritis Sister Age: 52 Mental health problem Social History marital status: household members: spouse Smoking Status: Never smoker alcohol intake: never substance use type: does not use during the past year weight has: remained stable well-balanced diet: daily or most days caffeine: No Type(s) of exercise: walking, bicycling, yoga and additional Meds Home Medications and Allergies Home Medications Medication Instructions Recorded Confirmed Type diclofenac sodium 75 mg See Rx Instructions .Route 05/20/22 07/16/23 Rx tablet,delayed release .COMPLEX #180 tabs estradiol 10 mcg vaginal tablet 10 mcg vaginal .COMPLEX 2 weeks 09/05/22 07/16/23 Rx (Vagifem) #90 tabs levothyroxine 88 mcg tablet See Rx Instructions .Route 02/03/23 07/16/23 Rx (Synthroid) .COMPLEX #90 tabs acetaminophen 500 mg oral powder 500 mg PO Q6H PRN Pain 05/05/23 07/16/23 History packet (Tylenol Extra Strength) metronidazole 500 mg tablet 500 mg PO TID #3 tabs 07/14/23 07/16/23 Rx neomycin 500 mg tablet 1 g (2 x 500 mg) PO TID 3 doses #6 07/14/23 07/16/23 Rx tabs sodium sul 1.479 gram-potas ch See Rx Instructions PO PER PKG DIR 07/15/23 07/16/23 Rx 0.188 gram-magnes sul 0.225 gram #24 tabs tablet (Sutab) escitalopram oxalate 10 mg tablet 10 mg PO DAILY 07/16/23 07/16/23 History Allergies Allergy/AdvReac Type Severity Reaction Status Date / Time meperidine [From DEMEROL] Allergy Unknown hallucinations Verified 07/16/23 06:44 at age 11yrs Exam Narrative Exam Narrative: GENERAL: A well nourished, well developed adult woman, resting comfortably, in no acute distress. HEENT: Normocephalic, atraumatic. No scleral icterus CHEST: Rising symmetrically. No audible wheezes CARDIOVASCULAR: Warm and well perfused. Regular rate ABDOMEN: Soft, non-tender, non-distended EXTREMITIES: Normal tone and without edema. NEUROLOGIC: Moving all extremities spontaneously. No gross motor deficits. Assessment & Plan Assessment and plan (1) Mass of hepatic flexure of colon: Status: Acute Assessment & Plan narrative: 58-year-old woman with a 3 cm ulcerated mass at the hepatic flexure here for elective laparoscopic right hemicolectomy. Pathology demonstrates sessile serrated adenoma without malignancy but discordant from endoscopic findings. Overview of the operation was again discussed. Operative risks including hemorrhage, infection, damage to surrounding structures, anastomotic leak, hernia, and anesthetic complications were discussed. Questions have been answered and she is in agreement with this plan. She provides her written and verbal consent to proceed.
[2023-07-16] VITALS (16 sets, daily range): BP systolic 102–127; BP diastolic 58–70; PULSE 57–84; RESP 10–18; TEMP 35.9–37; O2SAT 96–100; BMI 21.4
--- NOTE | 2023-07-16 | PATH_ITS ---
[facility] Accession Number: [id number] No. of containers..01 Tissue . 01 Material submitted: . colon - RIGHT COLON . 01 Diagnosis: Right Colon, Right Hemicolectomy: Invasive adenocarcinoma, moderately differentiated; see cancer case summary. Loss of MLH-1 and PMS-2 by immunohistochemistry; please see below. . . Cancer Case Summary - Colon And Rectum Specimen Procedure: Right hemicolectomy. Macroscopic evaluation of mesorectum: Not applicable. . Tumor Tumor site: Hepatic flexure. Histologic type: Adenocarcinoma. Histologic grade: G2, moderately differentiated. Tumor size: 3.0 cm in greatest dimension. Multiple primary sites: Not applicable. Tumor extent: Invades into muscularis propria. Macroscopic tumor perforation: Not identified. Lymphovascular invasion: Not identified. Perineural invasion: Not identified. Treatment effect: No known presurgical therapy. . Margins Margin status for invasive carcinoma: All margins negative for invasive carcinoma. Distance from invasive carcinoma to closest margin: Greater than 1 cm. Margin status for non-invasive tumor: All margins negative for dysplasia. . Regional Lymph Nodes Regional lymph node status: Regional lymph nodes present. All regional lymph nodes negative for tumor. Number of lymph nodes with tumor: Zero. Number of lymph nodes examined: 18. Tumor deposits: Not identified. . Distant metastasis: Not applicable. . Pathologic stage classification (pTNM, AJCC 8th edition) TNM descriptors: Not applicable. pT category: pT2 pN category: pN0 . Additional Findings Additional findings: Sessile serrated adenomas. . Special Studies: . IMMUNOHISTOCHEMISTRY TESTING FOR MISMATCH REPAIR PROTEINS: . MLH1: Loss of nuclear expression. MSH2: Intact nuclear expression. MSH6: Intact nuclear expression. PMS2: Loss of nuclear expression. Background nonneoplastic tissue/internal control with intact nuclear expression. . INTERPRETATION: Loss of nuclear expression of MLH1 and PMS2: testing for methylation of the MLH1 promoter and/or mutation of BRAF is indicated (the presence of a BRAF V600E mutation and/or MLH1 methylation suggests that the tumor is sporadic and germline evaluation is probably not indicated; absence of both MLH1 methylation and of BRAF V600E mutation suggests the possibility of Lombardi syndrome, and sequencing and/or large deletion/duplication testing of germline MLH1 may be indicated)* . * There are exceptions to the above IHC interpretations. These results should not be considered in isolation, and clinical correlation with genetic counseling is recommended to assess the need for germline testing. . * This test was developed and its performance characteristics determined by [employer]. It has not been cleared or approved by the U.S. Food and Drug Administration. The FDA has determined that such clearance or approval is not necessary. This test is used for clinical purposes. It should not be regarded as investigational or for research. [facility] 07/30/2023 1258 Local . 01 Comment: This case is reviewed in conjunction with the previous hepatic flexure biopsies ([id number]; 03/10/2023). The prior biopsies are fragments of serrated lesion consistent with sessile serrated adenoma; no cytologic dysplasia or invasive malignancy is seen. In the current resection specimen, the leading/peripheral edge of the adenocarcinoma shows serrated changes consistent with what is seen in the biopsy specimen. . Given the loss of MLH-1 and PMS-2 by immunohistochemistry, MLH-1 promoter methylation and BRAF V600 mutation studies will be performed, and results issued in an addendum. . As part of routine quality improvement manager, this case was also reviewed by Dr. Hernandez, who agrees with the diagnosis of invasive adenocarcinoma. . The findings in this case were discussed between Dr. Hughes and Dr. Elkins on 07/29/2023 at 10:55 a.m. . 01 Electronically signed: . Jadon Hughes MD, PhD, Pathologist NPI- [id number] . 01 Gross description: . The specimen is received in formalin labeled with the patient's name, , and right colon, consists of a right colon with attached fragment of ileum measuring 1.3 cm in length by 2.2 cm in diameter attached to a segment of right colon measuring 12.1 cm in length by 6.5 cm in circumference, and is previously opened. The attached appendix measures 5.3 cm in length by 0.4 cm in diameter. The distal end of the colon is inverted approximately 4.2 cm making identification of the distal margin difficult. The serosa is velazquez and smooth with a moderate amount of attached adipose. The ileal margin is inked blue, the presumed distal margin is inked black, and the mesenteric margin is inked green. The mucosa is velazquez and velvety with a sessile, centrally ulcerated lesion measuring 3.0 x 2.6 cm. Opening the remaining portion of the specimen revealed the distal staple line which is inked orange. The lesion measures 1.7 cm from the nearest orange-inked margin. Sectioning reveals the lesion to grossly appear to extend into but not through the wall, and the lesion is widely free from all remaining margins. The remaining mucosa is velazquez and unremarkable with no additional lesions identified. The irby average 0.3 cm thick with no diverticula identified. . The appendix has velazquez, smooth serosa, and sectioning reveals a patent pinpoint lumen averaging 0.1 cm in diameter. The irby are velazquez and unremarkable with no perforation or lesions identified, and average 0.2 cm thick. . Palpation of the pericolonic adipose reveals 25 lymph node candidates ranging from 0.2 to 0.9 cm in greatest dimension. . In Home [employer] Consultant sections are submitted as follows: A1: Proximal ileal margin and sales representative gas service mesenteric margin en face. A2-A6: Entire lesion with composite perpendicular distal margin in A4. A7: Ileocecal valve. A8: In Home Sales Consultant unremarkable mucosa. A9: Appendix to include one-half of bisected distal tip and cross sections. A10: Five intact lymph node candidates. A11: Four intact lymph node candidates. A12: Five intact lymph node candidates. A13: Five intact lymph node candidates. A14: Five intact lymph node candidates. ([id number]) /MRV 07/30/2023 1149 Local . 01 Pathologist provided ICD-10: C18.3 . 01 CPT . 341119, [id number], [id number] Specimen Comment: A courtesy copy of this report has been sent to [phone] Performed at: 01 [facility] [address] [place] [address], [place], [place] [id number] MD Kartik Valentino MD Phone: [phone]
[2023-07-16] MEDS: LACTATED RINGERS 1,000 ML 42 ML IV ×2 (07:15→09:36)
[2023-07-16] MEDS: PIPERACILLIN/TAZO 4.5 GM in SODIUM CHLORIDE 0.9% 100 ML IV (08:04)
--- NOTE | 2023-07-16 08:41 | SUR.OPER ---
Lithotomy on padded OR bed. Haralson Pad Positioner under torso. Head on pillow, arms padded and tucked at sides. Legs secured in padded yellow fins stirrups.
[2023-07-16] MEDS: BUPIVACAINE 0.25% (PF) 30 ML, EPINEPHrine 0.15 MG INJ (08:57)
[2023-07-16] MEDS: BUPIVACAINE LIPOSOME 266 MG/20 ML VIAL INJ (09:37)
--- NOTE | 2023-07-16 11:05 | PM.OP.1 ---
Operative Date/Time/Diagnoses Date of procedure: 07/16/23 Time of procedure: 11:05 Pre-op diagnosis: Colonic mass Post-op diagnosis: same Procedure & Clinicians Procedure: Laparoscopic right hemicolectomy Same procedure as scheduled: Yes Indications: 58-year-old woman, screening colonoscopy demonstrates a 3 cm ulcerated mass in the right colon at the hepatic flexure. Biopsy demonstrates sessile serrated adenoma no evidence of dysplasia or malignancy. Given the discrepancy between the pathological findings and the concerning pathologic appearance as well as incomplete resection she elects to proceed with a colectomy. Surgeon: Festus Elkins Anesthesia Type: General Operative Notes Findings: Firm ulcerated mass at the hepatic flexure approximally 3 cm no mesenteric lymphadenopathy no evidence of metastatic disease Specimen(s): other (Right colon-opened on back table) Estimated Blood Loss (mL): 50 Procedure in detail: Patient was brought to the operating room placed supine on the table. Bilateral lower extremity compression devices were applied. General anesthesia was induced and she was intubated with an endotracheal tube. Garcia catheter was sterilely placed. She was then placed into lithotomy. Appropriately padded. She was prepped and draped in sterile fashion time-out was performed. She is prepped and draped in sterile fashion. Supraumbilical incision was made fascia was sharply incised and the abdomen was entered atraumatically. Pneumoperitoneum was established. General inspection of the abdomen was made there was no evidence of injury upon entry no evidence of metastatic disease. Additional working ports were placed suprapubic and left lower quadrant. The right colon was mobilized in a lateral to medial fashion. The attachments to the terminal ileum were incised and the right ureter was identified kept posterior out of harm's way. Dissection proceeded superior along the white line of Toldt. The tattoo was clearly present at the superior aspect of the right colon just before the hepatic flexure. the duodenum was visualized and kept posterior out of harm's way. Ileocolic pedicle was divided using the LigaSure. At this point there was excellent mobility of the right colon the hepatic flexure could move all the way to the umbilicus. The supraumbilical incision was extended to approximately 6 cm in length and the bowel was exteriorized through a John retractor. The terminal ileum was divided after a window within its mesentery was made and the bowel was divided with the Endo-MINAL stapler 75 mm blue load. We then divided the colon in a similar fashion at the hepatic flexure. The mesentery was divided using the LigaSure and the specimen was passed off the field labeled right colon. Specimen was opened on the back table and a firm ulcerated mass was identified of approximately 3 cm in size. No palpable mesenteric lymphadenopathy. We then formed a [id number] functional end and anastomosis. Crotch stitch of silk was placed. An enterotomy and a colotomy were intentionally made in the limbs and then a stapler was used to create a imzf-pb-ipst anastomosis the anastomosis was inspected it was hemostatic widely patent and without tension. Common channel was then closed with a running 3-0 PDS suture and then was imbricated his 2nd layer with interrupted silk suture. A 1 cm hematoma was noted in the wall of the terminal ileum and portion of omentum was fashioned over it and overlying the anastomosis. The mesenteric defect was quite large and was therefore left open. The anastomosis was tested it was widely patent and there was no evidence of leak the bowel was returned to the abdomen. The abdomen was thoroughly irrigated with several L of saline and the lavage returned clear. The fascia was then closed in a running fashion using 1. PDS suture subcutaneous tissue with Vicryl and the skin with Monocryl followed by the application of Dermabond. She tolerate the operation well was transferred to recovery in stable condition. 0.25% bupivacaine and Exparel were used for local anesthetic. Complications: none Post-operative Condition: stable Disposition: Acute Care
--- NOTE | 2023-07-16 11:25 | SUR.PHASEI ---
Report called to Cyn Augustine.
--- NOTE | 2023-07-16 11:32 | SUR.PHASEI ---
Patient transferred to the floor with her belongings bag by
[2023-07-16] MEDS: DEXTROSE 5%-0.45% NS 1,000 ML 100 ML IV (12:14)
--- NOTE | 2023-07-16 12:29 | PC.NURSE ---
Pt to room 220 via bed from PACU. Pt is awake, alert, and oriented. IV infusing. SCD's on and running. Bed alarm on for safety. Pt oriented to room, call light, bed controls, and tv controls, Spouse at the bedside and Pt agrees to call for assistance as needed.
[2023-07-16] MEDS: ONDANSETRON 4 MG/2 ML INJ IV (13:23)
--- NOTE | 2023-07-16 13:29 | OT.IPNOTE ---
Attempted to see pt for OT eval. Pt feeling woozy, nauseous at this time and not ready to get up as just have surgery earlier. Pt given information for needs after abdominal surgery and pt has a very supportive to assist at home. Pt aware of LB dressing equipment as her dad just had hip sx. Pt has no OT needs at this time and pt stay to see PT later. Discharge OT eval orders, no charge.
--- NOTE | 2023-07-16 14:15 | PT.IIE ---
Current Diagnoses Other specified diseases of intestine (07/16/23) Surgery Performed Operation Date: 07/16/23 07:45 Actual Procedures p Laparoscopic Colectomy(Right) - Festus Elkins MD Surgical History (Last Reviewed 07/15/23 @ 13:00 by Festus Elkins MD) Anesthesia Deviated septum (~2012) History of carpal tunnel repair (~2014) History of lumbosacral spine surgery History of tonsillectomy (~1966) Status post dilation and curettage (~1990) Medical History (Last Reviewed 07/15/23 @ 13:00 by Festus Elkins MD) Acne (~1980) Anxiety (~2013) Bunion (03/02/15) Carpal tunnel syndrome (03/02/15) Carpal tunnel syndrome (~1995) Cervical stenosis of spinal canal Chicken pox (~1966) Chronic back pain (~1996) Depression (~1986) Facet arthropathy, lumbar Fibroids (~1990) Headache (~1993) History of COVID-19 (2020) Hypothyroidism (~2002) Low back pain Lumbar stenosis with neurogenic claudication Migraines (~1999) Osteoarthritis Scoliosis Sleep apnea (~2011) Thoracic stenosis Physical Therapy Inpatient Evaluation/Re-Eval M1 PT/OT-IP Prior Functional Status Start: 07/16/23 15:34 Freq: NEEDED Status: Active Protocol: Document 07/16/23 14:15 AB (Rec: 07/16/23 15:49 AB [id number]) Medical Review Prior Functional Status Medical History Reviewed Yes Communication able to make needs known Mobility and Gait pt stated that she was independent with all mobilities and ambulation without AD Social History Household Members spouse Living Arrangements House Number of Floors (Floors) Two Floors Number of Stairs To Enter/Railing? pt stays on main level of the house Has 2 steps without rails to enter the house Home Environment High Toilet,Walk in Shower Home Equipment Hand Held Shower,Grab Bars In Shower Additional Social History Comment pt has an adjustable bed M2 PT-IP Current Condition Start: 07/16/23 15:34 Freq: NEEDED Status: Active Protocol: Document 07/16/23 14:15 AB (Rec: 07/16/23 15:49 AB [id number]) Physical Therapy Current Condition Current Condition Evaluation Date 07/16/23 Treatment Diagnosis s/p R hemicolectomy; difficulty in walking Onset Date 07/16/23 M3 PT-IP Subjective Start: 07/16/23 15:34 Freq: NEEDED Status: Active Protocol: Document 07/16/23 14:15 AB (Rec: 07/16/23 15:49 AB [id number]) Subjective Physical Therapy Visit Type Type Initial Evaluation Visit Start Time 14:15 Visit Stop Time 15:00 Total Visit Minutes 45 Number of FACILITY MECHANIC Visits 0 Physical Therapy Visit Comments Patient Comments agreeable to do PT Therapy Pain Assessment Pain When Pain Assessed At Rest Pain Present Pain Present Pain Reported Location Abdomen Intensity 3 Scale Used Numeric (0 - 10) Pain Management Techniques Apply Cold,Distraction, Modification of Treatment,Re- positioning,Timing of Activity with Medications M4 PT-IP Mobility and Gait Start: 07/16/23 15:34 Freq: NEEDED Status: Active Protocol: Document 07/16/23 14:15 AB (Rec: 07/16/23 15:49 AB [id number]) PT-Bed Mobility Assessment Rolling Type of Rolling Log Rolling Level of Assist Standby Assistance Supine to Sit Supine to Sit Standby Assistance Sit to Supine Sit to Supine Standby Assistance PT-Transfer Assessment Sit to and From Stand Sit to and from Stand Standby Assistance,Contact Guard Assistance,1 Person Assistance,Use of Upper Extremities Equipment Transfer Assistive Device None,Gait Belt,Front Wheeled Walker Orthotic/Prosthetic Devices or Brace: No Transfers Transfer Destination Bed,Chair Transfer Technique Stand Step Pivot Transfer Ability Level of Assist Standby Assistance,Contact Guard Assistance,1 Person Assistance,Use of Upper Extremities Comments Mobility Comments pt supine in bed. spouse in room. BP: 109/71 O2 sat: 98% and MO: 90. educated pt regarding abdominal precautions and log roll bed mobility. pt stated that she had h/o back sx and is familiar with log roll bed mobility. pt completed supine to sit log roll SBA. able to sit on EOB SBA. BP: 122/66 MO : 86 O2 sat 100%. completed sit to stand SBA to CGA and ambulated in room using FWW SBA to CGA ~ 20 ft. (+) posterior LOB x 1 but with recovery. pt sat on the chair and rested. Assessed ambulation without AD and completed ~ 20 ft CGA. presents with unsteady gait. pt sat back on the chair. assess up/down step stool and completed x 2 sets CGA. pt sat back on the chair. pt requested to go back to bed and wants to take a nap. completed step transfer to bed without AD SBA. completed sit to supine log roll SBA. positioned pt on the bed. Nurse in room to take benson out. Left pt with nurse. Gait Assessment Gait Gait Assistance Required: Standby Assistance,Contact Guard Assist,1 Person Assist Distance (Feet) 20 Able to Maintain Weight Bearing Status Yes During Gait Assistive Devices Assistive Device None,Gait Belt,Front Wheeled Walker Orthotic/Prosthetic Devices or Brace: No Gait Deviations General Gait Pattern Decreased Stride Length, Decreased Feet Clearance Factors Limiting Gait Function Factors Limiting Gait Function Decreased Activity Tolerance, Decreased Strength,Limited Range of Motion,Pain,Poor Balance,Poor Safety Awareness Stair Climbing Assessment Evaluation Level of Assist On Stairs Contact Guard Assistance Devices Stair Climbing Assistive Devices None Technique/Endurance Stair Climbing Direction Ascend and Descend Stair Climbing Technique Step to Step Number of Steps Climbed 1 Query Text: Stair Climbing Set # Repetitions (reps) 2 PT-Balance Assessment Sitting Balance and Reactions Static Sitting Balance Ability Normal Dynamic Sitting Balance Ability Good Standing Balance and Reactions Static Standing Balance Ability Good Dynamic Standing Balance Ability Fair Device Used without AD M5 PT-IP Objective Assessments Start: 07/16/23 15:34 Freq: NEEDED Status: Active Protocol: Document 07/16/23 14:15 AB (Rec: 07/16/23 15:49 AB [id number]) Orientation Orientation/Cognition Level of Alertness Alert Orientation Name,Place,Situation Language Function Ability No Deficits Noted Safety Awareness Understands Safety Issues Memory Description No Deficits Noted Gross Range of Motion Lower Extremity ROM Assessment Within Functional Limits Strength Lower Extremity Strength Assessment Within Functional Limits Coordination Assessment Gross Coordination Gross Coordination WNL Sensation Assessment Sensation Gross Sensation WNL Muscle Tone Muscle Tone WNL Yes M6 PT-IP Treatment Start: 07/16/23 15:34 Freq: NEEDED Status: Active Protocol: Document 07/16/23 14:15 AB (Rec: 07/16/23 15:49 AB [email or web address]) Physical Therapy Treatment Education Education Provided Precautions,Weight Bearing Status,Post-Op Packet,Safety M7 PT-IP Assessment and Plan Start: 07/16/23 15:34 Freq: NEEDED Status: Active Protocol: Document 07/16/23 14:15 AB (Rec: 07/16/23 15:49 AB [email or web address]) PT Summary Assessment and Plan Potential Rehabilitation Potential Good Status of Condition at Evaluation Evolving Summary Impairments Pain,ROM,Strength,Balance, Coordination,Sensation,Tone, Cognition,Bed Mobility, Transfers,Gait,Activity Tolerance Assessment Summary pt is a 58 y/o F who underwent R hemicolectomy POD 0. post- op handout provided to pt and educated with abdominal precautions. pt requiring SBA to CGA with mobility without AD but with decrease activity tolerance at this time. pt plans to go home and spouse to assist pt at home. will conduct caregiver training when appropriate. Goals Bed Mobility Goal Independent Transfer Goal Independent Gait Goal Independent Gait Distance 300 Other Goals up/down 2 steps without rails I Days to Meet Goals 10 Frequency of Treatment Frequency Of Treatment Once a Day Treatment Plan Physical Therapy Treatment Plan Bed Mobility Training,Transfer Training,Gait Training, Therapeutic Exercise,Balance Retraining,Post Op Education, Discharge Planning,Hot or Cold Pack,Neuromuscular Re-ed, Coordination Retraining Precautions Abdominal Surgery Precautions Log Roll,Lifting Restrictions, Gait Belt above Incisional Area Recommendations To Nursing Amount of Assist Needed 1 Person Assist Discharge Recommendations PT Discharge Recommendations Home with Assistance Equipment Needed for Home Before FWW if not safe without AD Discharge Transportation Needs at Discharge Private Vehicle
[2023-07-16] MEDS: OXYCODONE IR 5 MG TABLET PO (16:51)
[2023-07-16] MEDS: CELECOXIB 200 MG CAPSULE PO (20:30)
[2023-07-17] MEDS: MELATONIN 3 MG TABLET 6 MG PO (00:20)
[2023-07-17 04:00] VITALS: BP 95/57; PULSE 60; RESP 16; TEMP 36.6; O2SAT 96
[2023-07-17] MEDS: OXYCODONE IR 5 MG TABLET PO ×3 (04:17→11:19)
[2023-07-17 04:41] LABS: Add Manual Diff / Slide Review NO; Basophils Absolute Auto 100 /uL (0-100); Basophils Percent Auto 1.1 % (0-2); Eosinophils Absolute Auto 0 /uL (0-450); Eosinophils Percent Auto 0.1 % (2-4); Hematocrit 36.3 % (36-46); Hemoglobin 12.3 g/dL (12.0-16.0); Lymphocytes Absolute Auto 1600 /uL (1100-4500); Lymphocytes Percent Auto 15.5 % (25-40); Mean Corpuscular HGB Conc 33.9 % (30-36); Mean Corpuscular Hemoglobin 28.7 PG (26-34); Mean Corpuscular Volume 84.7 fL (80-100); Monocytes Absolute Auto 500 /uL (0-900); Monocytes Percent Auto 4.8 % (3-14); Neutrophils Absolute Auto 8200 /uL (1500-7000); Neutrophils Percent Auto 78.5 % (50-75); Platelet Count 182 X10^3/uL (150-400); Red Blood Cell Count 4.28 X10^6/uL (4.0-5.2); Red Cell Distribution Width 13.3 % (11.6-14.8); White Blood Cell Count 10.5 X10^3/uL (4.5-11.0)
[2023-07-17 04:47] LABS: BUN Creatinine Ratio 14.9 (6-22); Blood Urea Nitrogen 10 mg/dL (7-17); Calcium 8.6 mg/dL (8.4-10.2); Carbon Dioxide 24 mmol/L (22-32); Chloride 104 mmol/L (98-107); Estimated Glomerular Filt Rate > 60 mL/min (>60); Glucose 114 mg/dL (70-100); HEMOLYSIS < 15 (0-50); Potassium 3.7 mmol/L (3.4-5.1); Sodium 134 mmol/L (137-145)
[2023-07-17] MEDS: LEVOTHYROXINE 88 MCG TABLET PO (05:48)
[2023-07-17 08:00] VITALS: BP 103/65; PULSE 61; TEMP 36.8; O2SAT 98
[2023-07-17] MEDS: CELECOXIB 200 MG CAPSULE PO (08:19)
[2023-07-17] MEDS: ACETAMINOPHEN 325 MG TABLET 650 MG PO (08:20)
[2023-07-17] MEDS: ESCITALOPRAM 10 MG TABLET PO (08:20)
--- NOTE | 2023-07-17 11:02 | PM.DS.1 ---
History of Present Illness History of Present Illness Date Patient Seen: 07/17/23 Time Patient Seen: 11:02 Chief complaint: Laparoscopically Assisted Colectomy 07/16 Narrative: 58 y.o woman with a 3cm ulcerated mass of the hepatic flexure here for elective right hemicolectomy. 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 Endoscopic resection of the polyp was incomplete and given the discrepency between the appearance of the polyp and pathological findings she elects to proceed with laparoscopic right hemicolectomy. Discharge Providers Provider Date of admission: 07/16/23 06:31 Discharge Date: 07/17/23 Primary care physician: Zac Mccallum MD Consults: 07/16/23 11:00 Consult to Occupational Therapy Evaluate & Treat Comment: Physician Instructions: Evaluate and treat Consult to Physical Therapy Evaluate & Treat Comment: Physician Instructions: Evaluate and Treat Discharge provider: Festus Elkins MD Summary Hospital Course Discharge Diagnosis: Colonic mass Status post colectomy Hospital Course: Underwent a laparoscopic-assisted right hemicolectomy July 16 for a right colonic mass. Unremarkable operation. She tolerated the operation quite well. Her pain has been well controlled with oral medication, ambulatory, tolerant of a regular diet and with return of bowel function. Emergency return precautions provided. Time Spent with Patient Time spent: Greater than 30 minutes Exam Vital Signs (past 8 hours): - 07/17/23 04:00 07/17/23 04:00 07/17/23 08:00 Temperature 97.9 F Pulse Rate 60 Respiratory Rate 16 Blood Pressure 95/57 L Pulse Oximetry 96 96 98 Oxygen Delivery Method Room Air Room Air Oxygen Flow Rate 0 0 07/17/23 08:00 Temperature 98.3 F Pulse Rate 61 Respiratory Rate Blood Pressure 103/65 Pulse Oximetry 98 Oxygen Delivery Method Oxygen Flow Rate Oxygen Delivery Method Room Air Oxygen Flow Rate 0 Narrative Exam Narrative: General adult woman alert oriented no acute distress Abdomen soft, appropriately tender to palpation incisions clean dry intact. Objective Labs 07/17/23 04:12 07/17/23 04:12 Labs: Laboratory Results - last 24 hr 07/17/23 04:12 WBC 10.5 RBC 4.28 Hgb 12.3 Hct 36.3 MCV 84.7 MCH 28.7 MCHC 33.9 RDW 13.3 Plt Count 182 Neut % (Auto) 78.5 H Lymph % (Auto) 15.5 L Andrews % (Auto) 4.8 Eos % (Auto) 0.1 L Baso % (Auto) 1.1 Neut # (Auto) 8200 H Lymph # (Auto) 1600 Andrews # (Auto) 500 Eos # (Auto) 0 Baso # (Auto) 100 Sodium 134 L Potassium 3.7 Chloride 104 Carbon Dioxide 24 BUN 10 Creatinine 0.67 Estimated GFR > 60 BUN/Creatinine Ratio 14.9 Glucose 114 H Calcium 8.6 PFSH Medical History History of COVID-19 (2020) Low back pain Thoracic stenosis Lumbar stenosis with neurogenic claudication Facet arthropathy, lumbar Cervical stenosis of spinal canal Osteoarthritis Sleep apnea (~2011) Depression (~1986) Anxiety (~2013) Migraines (~1999) Headache (~1993) Scoliosis Chronic back pain (~1996) Carpal tunnel syndrome (~1995) Acne (~1980) Chicken pox (~1966) Fibroids (~1990) Hypothyroidism (~2002) Carpal tunnel syndrome (03/02/15) Bunion (03/02/15) Surgical History Anesthesia Deviated septum (~2012) History of lumbosacral spine surgery History of carpal tunnel repair (~2014) Status post dilation and curettage (~1990) History of tonsillectomy (~1966) Family History Brother Age: 60 Heart disease Brother Age: 45 Essential hypertension High cholesterol Mental health problem Child Age: 36 Mental health problem Father Age: 86 Heart disease History of shingles Mother Age: 85 Mental health problem Grandmother Diabetes mellitus Arthritis Sister Age: 52 Mental health problem Social History marital status: household members: spouse Smoking Status: Never smoker alcohol intake: never substance use type: does not use during the past year weight has: remained stable well-balanced diet: daily or most days caffeine: No Type(s) of exercise: walking, bicycling, yoga and additional Discharge Plan Discharge Plan Patient Disposition: Home Provider Discharge Comment: -Okay to shower today -Do not submerge/soak wounds in water until seen in follow-up. -No lifting >10 lbs x 4 weeks. -Walking only for exercise for 4 weeks. -No driving while taking narcotics. Discharge orders & Medications Prescriptions: New oxycodone 5 mg Tablet 5 mg PO Q4H PRN (Reason: Abdominal Pain) Qty: 4 0RF Rx Instructions: Take 5mg tablet with food, every 4 hours as needed for abdomnial pain relief oxycodone 5 mg tablet 5 mg PO Q6H PRN (Reason: pain) Qty: 20 0RF Continued diclofenac sodium 75 mg tablet,delayed release (DR/EC) See Rx Instructions .ROUTE .COMPLEX Qty: 180 1RF Dose Instruction: TAKE 1 TABLET TWICE A DAY Rx Instructions: TAKE 1 TABLET TWICE A DAY estradiol [Vagifem] 10 mcg tablet 10 mcg vaginal .COMPLEX 14 Days Qty: 90 4RF Rx Instructions: 10 mcg vaginally nightly for 2 weeks then three times weekly; levothyroxine [Synthroid] 88 mcg tablet See Rx Instructions .ROUTE .COMPLEX Qty: 90 3RF Dose Instruction: TAKE 1 TABLET DAILY Rx Instructions: TAKE 1 TABLET DAILY Sutab 1.479-0.188- 0.225 gram tablet See Rx Instructions PO PER PKG DIR Qty: 24 0RF Rx Instructions: take as directed by Physician escitalopram oxalate 10 mg tablet 10 mg PO DAILY Tylenol Extra Strength 500 mg powder in packet 500 mg PO Q6H PRN (Reason: Pain) Discontinued neomycin 500 mg tablet 1 g PO TID Qty: 6 0RF Rx Instructions: administer at 1 PM, 2 PM, and 10 PM the day prior to surgery metronidazole 500 mg tablet 500 mg PO TID Qty: 3 0RF Rx Instructions: administer at 1 PM, 2 PM, and 10 PM the day prior to surgery Follow up/Referrals: Zac Mccallum MD [Primary Care Provider] - 1 Month Festus Elkins MD [Physician] - 2 Weeks Diet/Activity/Treatments Diet: Regular Skin/Wound/Dressing Care Report to your healthcare provider any signs of infection, such as:: chills, fever, increased pain, unusual drainage and unusual redness Visit Report/Discharge Packet Stand Alone Forms: Patient Portal/API, Stroke Signs & Symptoms Discharge Data Primary Care Provider: Zac Mccallum Quality VTE Deep Vein Thrombosis/Pulmonary Embolism Present on Admission: No
[2023-07-17] MEDS: OXYCODONE/APAP 5/325 PREPACK 1 BOTTLE MISC (11:19)
--- NOTE | 2023-07-17 15:00 | CM.DANOTE ---
Reviewed EMR and team rounds for pt's medical status and anticipated d/c needs. Pt d/c'd prior to this TECHNICAL SUPPORT COORDINATOR's ability to meet with her in person. Information based on team rounds and EMR review. Payor: [employer] Attending: Dr. Elkins Pt is a 58 year-old F admitted for laporoscopic right-sided hemicolectomy due to colonic mass. Endoscopic resection was completed on 07/16/23, pt d/c'd home with no anticipated d/c needs. Plan: OP f/u with Surgeon, no resource/support needs identified at this time. Discharge Planning/Care Management Advanced directive, confirm from FAMILY Start: 07/16/23 12:01 Freq: Q24H Status: Discharge Protocol: Document 07/16/23 12:01 CM (Rec: 07/16/23 12:06 CM [id number]) Advance Directive, confirm on record Time 12:06 Person contacted Pt Copy received No CM Discharge Assessment Start: 07/17/23 14:56 Freq: Status: Discharge Protocol: Document 07/17/23 14:56 DPL (Rec: 07/17/23 14:59 DPL [id number]) Discharge Planning Assessment Assigned Protective Officer JOSE JUAN Moreno Advance Directives? Yes Advance Directives on File No History Provided By Medical Record Prior Living Arrangements House Household Members spouse Type of transporation used prior to Drives own vehicle admit Independent with ADL's Yes Is patient alert and oriented? Yes Caregiver for Another No Comment No identified home d/c needs at this time. Barriers to Discharge No Discharge Plan Home Transportation Arrangement Family Referrals Initiated None needed Review Status In Process Please Provide Date Initial DC 07/17/23 Assessment Was Performed Pre-Anesthesia Assessment Start: 07/08/23 08:30 Freq: Status: Discharge Protocol: Document 07/08/23 08:30 CAB (Rec: 07/08/23 09:20 CAB [id number]) Pre-Anesthesia Assessment Preferred Name Jackelyn or Aleida Patient Information Reviewed Via Phone Assessment Assessment Completed With Patient Primary Care Provider Zac Mccallum Seen Specialist in Last 12 Months Yes Specialist Seen General surgeon,Other Comment Pain Management Primary Language Korean Tower Erector Required No Height 172.72 cm Weight 65.771 kg Body Mass Index (BMI) 22.0 Hearing Ability Normal Visual Assist Contacts,Glasses Dentition Type Teeth, Natural Present Barriers to Learning None Hx Anesthesia Reactions No Hx Family Anesthesia Reaction No Hx Malignant Hyperthermia No Hx Blood Transfusions Yes: With lumbar surgery childhood Hx Blood Transfusion Reaction No Anesthesia Review Requested No Desktop Operator No alcohol intake never Smoking Status Never smoker Substance Use Type does not use Pain Present Pain Reported Musculoskeletal Symptoms Back Pain,Joint Pain History of Falling (Recent or History of No ) Patient is completely paralyzed or No completely immobile Mental Status Oriented to own ability Is patient on oxygen? No Does patient have MILLAN/SOB No Hx Sleep Apnea Yes Currently Taking a Beta Tiffany No Can You Climb a Flight of Stairs Without Yes SOB Hx Chest Pain No Hx SOB No Hx Syncope or Dizziness No Anti-Coagulant Therapy No Has a Mis Manager No Cardiac Testing No Hx Pacemaker/ICD No Pacemaker Rep Required? No Cardiac Clearance Received Not Applicable Diet Type At Home Regular Dysphagia No Gastrointestinal Symptoms None Chronic UTI No Urinary Catheter Present No Hx Urinary Self Catheterization No Diabetes No Patient No Lactating No Hx Drug Resistant Organism No Presence of External or Internal Medical No Devices Received a COVID vaccine? Yes Received all doses? Yes Marital Status Lives With spouse Current Living Arrangements House Number of Floors (Floors) Two Floors Support System Spouse Does the Patient Have Assistance After Yes Surgery Patient Discharge Plan Description Return Home Comment Pt not advised on length of stay per surgeon Feels Safe in Current Environment Yes Been Physically Hurt or Threatened By a No Person in Current Environment Do you have thoughts of harming yourself None or others? Are you currently considering suicide? No Do you have a plan to hurt yourself or No Plan others? Do You Have Any Spiritual Beliefs That No May Affect Your HC Choices? Do You Have Any Cultural Practices That No May Affect Your HC Choices? Comment LDS Who Can We Speak to About Patient's Care Family, friends Identifying Code for Release of Patient Declines to issue Information Health Care Proxy/Next of Kin Juan C () Health Care Proxy Emergency Contact Name Juan C () Emergency Contact Advance Directives? Yes Advance Directives on File No Requested Patient Bring Advanced Yes Directives DOS Power of Shovel Engineer Yes Power of Shovel Engineer Name Juan C () Power of Shovel Engineer PAC Instructions Medications to take/avoid,No ETOH/petroleum product on skin DOS,NPO,Pre-op antibiotic, Sensory aids,Sturdy shoes/ comfortable clothes,Do not bring valuables and remove jewelry
== END 2023-07-17 12:00 | disposition home or self-care (01) | DRG 331 ==
PROVIDERS: Admitting Provider Surgery; PCP Family Medicine; Referring Provider Surgery; Visit Provider Surgery
PROC: 0DTE0ZZ Resection of Large Intestine, Open Approach (ICD-10-PCS; principal; 2023-07-16 07:45)
DX: C18.2 Malignant neoplasm of ascending colon (principal); E03.9 Hypothyroidism, unspecified
CPT/HCPCS: 36415; 44204; 80048; 85025; 97116; 97162; C9290; J0171; J1100; J1885; J2250; J2405; J2543; J2704; J3010

== ENCOUNTER → 2023-08-04 10:59 | Outpatient (CLI) | payer BC, SELFPAY ==
[2023-07-16 11:41] VITALS: BMI 21.4
[2023-08-04 12:34] LABS: Carcinoembryonic Antigen 1.2 ng/mL (0.1-3.0)
== END ==
PROVIDERS: PCP Family Medicine; Referring Provider Surgery; Visit Provider Surgery
DX: C18.9 Malignant neoplasm of colon, unspecified (principal)
CPT/HCPCS: 36415; 82378

== ENCOUNTER → 2023-08-29 13:52 | Outpatient (CLI) | payer BC, SELFPAY ==
[2023-07-16 11:41] VITALS: BMI 21.4
--- NOTE | 2023-08-29 13:54 | DI.MG.S_ITS ---
BILATERAL DIGITAL SCREENING MAMMOGRAM 3D/2D WITH CAD: 08/29/2023 CLINICAL: Routine screening. Comparison is made to exams dated: 04/01/2022 mammogram, 03/18/2022 mammogram, 03/03/2020 mammogram - [facility], and 06/09/2018 mammogram - [facility]. Both breasts are extremely dense, which lowers the sensitivity of mammography (category d />75% glandular tissue). Current study was also evaluated with a Computer Aided Detection (CAD) system. There are benign masses in both breasts. There also are benign calcifications in both breasts. No significant masses, calcifications, or other findings are seen in either breast. There has been no significant interval change. IMPRESSION: BENIGN There is no mammographic evidence of malignancy. A 1 year screening mammogram is recommended. Based on the Tyrer Cuzick model (a risk assessment model) the patient's lifetime risk is 8.9% and her 10 year risk is 3.5%. According to the ACR, ACS, and NCCN guidelines, an annual breast MRI exam along with mammogram is recommended if the patient's lifetime risk is 20% or greater. This exam was interpreted at Station ID: [id number]. NOTE: For mammograms, a report in lay terms will be sent to the patient. Approximately 15% of breast malignancies will not be visualized mammographically. In the management of a palpable breast mass, a negative mammogram must not discourage biopsy of a clinically suspicious lesion. Electronically Signed By: Ghulam carpenter/sallie:08/29/2023 14:29:10 letter sent: Normal Exam ACR BI-RADS Category 2: Benign Finding(s) 3342F
--- NOTE | 2023-08-29 15:05 | DI.CT.S_ITS ---
PROCEDURE: CT CHEST ABD PEL W CON INDICATIONS: colon cancer staging TECHNIQUE: After the administration of intravenous contrast, 5 mm thick sections acquired from the lung apices to the symphysis. 5 mm coronal and sagittal reformats were performed, with additional 7 mm MIP reformats through the lungs. For radiation dose reduction, the following was used: automated exposure control, adjustment of mA and/or kV according to patient size. COMPARISON: None. FINDINGS: Image quality: Excellent. CHEST: Lower Neck: No enlarged lymph nodes. Thyroid: No thyroid nodules which require sonographic follow up, per consensus guidelines. Axillae: No enlarged lymph nodes. Chest Wall: Pes cavus. Lungs and Pleura: No pneumothorax or pleural effusions. No consolidation or suspicious nodules. Trace branching tree-in-bud nodules in the posterior right upper lobe, likely trace infectious/inflammatory bronchiolitis. Heart: Heart size is normal. No pericardial effusion. Thoracic Vessels: The aorta and pulmonary arteries demonstrate normal size. Mediastinum and Priscilla: No enlarged lymph nodes. Esophagus: No wall thickening. Small hiatal hernia. Oral contrast within the esophagus, either reflux or esophageal dysmotility. ABDOMEN: Liver: No solid mass. Gallbladder: Cholelithiasis without wall thickening or adjacent fat stranding to suggest acute cholecystitis. Biliary ducts: No biliary dilation. Pancreas: No ductal dilation. Spleen: Size is within normal limits. Adrenal Glands: No adrenal nodules. Kidneys and Ureters: No hydronephrosis. No solid mass. No complex renal cystic lesion which requires follow up. Stomach and Bowel: Colonic wall thickening of the cecum. No regional adenopathy. Prior appendectomy. Peritoneum: No abnormal intraperitoneal fluid. No free air. Ventral Wall: No hernia. Abdominal Nodes: No retroperitoneal or mesenteric adenopathy by size criteria. Vessels: Aorta and inferior vena cava are normal in size. PELVIS: Pelvic Organs: Unremarkable. Bladder: Unremarkable. Pelvic Nodes: No enlarged lymph nodes. Miscellaneous: No inguinal hernias are seen. Bones: Significant degenerative disc disease L5-S1. Surgical fusion of the thoracolumbar spine. Convex right scoliosis. IMPRESSION: Colonic wall thickening of the cecum, presumably the primary malignancy. No regional adenopathy by size criteria. No definite evidence of metastatic disease. Very mild infectious/inflammatory bronchiolitis of the right upper lobe. Other chronic findings as above. Dictated by: Howard Duffy M.D. on 08/29/2023 at 17:11 Approved by: Howard Duffy M.D. on 08/29/2023 at 17:15
== END ==
LOC: MAMMO 13:52
PROVIDERS: PCP Family Medicine; Referring Provider Family Medicine; Visit Provider Family Medicine
DX: Z12.31 Encounter for screening mammogram for malignant neoplasm of breast (principal); C18.2 Malignant neoplasm of ascending colon; K44.9 Diaphragmatic hernia without obstruction or gangrene; K80.20 Calculus of gallbladder without cholecystitis without obstruction; M51.37 Other intervertebral disc degeneration, lumbosacral region; M41.9 Scoliosis, unspecified; Z98.1 Arthrodesis status
CPT/HCPCS: 71260; 74177; 77063; 77067

== ENCOUNTER 2023-09-04 09:20 | Outpatient (CLI) | payer BC, SELFPAY ==
[2023-07-16 11:41] VITALS: BMI 21.4
[2023-09-04 09:25] VITALS: BP 129/66; PULSE 59; RESP 18; TEMP 36.2; O2SAT 100
--- NOTE | 2023-09-04 09:45 | DI.RAD.S_ITS ---
PROCEDURE: PAIN L INTERLAMINAR/CAUDAL INJ INDICATIONS: SPINAL STENOSIS COMPARISON: [facility], XA, PAIN L INTERLAMINAR/CAUDAL INJ, 05/08/2023, 9:42. FINDINGS: Fluoroscopic spot filming was performed to verify placement of spinal needles at the L5-S1 level(s), as labeled on the films. Appropriate location(s) of the needle tip(s) was confirmed by injection of iodinated contrast. IMPRESSION: Intra procedural examination demonstrating appropriate positions of the needles. Dictated by: Norman Cantu M.D. on 09/04/2023 at 11:52 Approved by: Norman Cantu M.D. on 09/04/2023 at 11:54
[2023-09-04 10:17] VITALS: BP 140/67; PULSE 55; RESP 19; O2SAT 99
[2023-09-04] MEDS: MIDAZOLAM 2 MG/2 ML VIAL IV (10:17)
[2023-09-04 10:20] VITALS: BP 132/72; PULSE 54; RESP 20; O2SAT 100
[2023-09-04] MEDS: iopamidoL 15 ML VIAL 3 ML INJ (10:23)
[2023-09-04] MEDS: BUPIVACAINE 0.25% (PF) VIAL 2 ML INJ (10:23)
[2023-09-04] MEDS: DEXAMETHASONE 10 MG/ML VIAL INJ (10:23)
[2023-09-04] MEDS: BETAMETHASONE 30 MG/5 ML MDV 12 MG INJ (10:24)
[2023-09-04 10:25] VITALS: BP 123/73; PULSE 52; RESP 20; O2SAT 100
--- NOTE | 2023-09-04 10:32 | P.PCN_ITS ---
Date/Time/Diagnoses Date of procedure: 09/04/23 Time of procedure: 10:32 Pre-procedure diagnosis: 1. HNP WITH RADICULAR FEATURES, 2. MULTILEVEL CENTRAL STENOSIS, Post-procedure diagnosis: same Procedure Notes Procedure: 1. FLUOROSCOPICALLY GUIDED CONTRAST CONTROLLED INTERLAMINAR EPIDURAL STEROID INJECTION - L5/S1 Indications: French is referred by Dr. Mccallum for treatment of Bilateral Foraminal Stenosis L>R LE symptoms. Physician: Eyad Nunez Total Fluoroscopy time (seconds): 5 Total sedation minutes: 11 Complications: none Procedure in detail & Post-procedure care: FINDINGS Multilevel Central Spinal Stenosis with Nerve Root Compression DESCRIPTION OF PROCEDURE Fluoroscopically guided, contrast-controlled L5/S1 translaminar epidural steroid injection. Following review of allergy and review of potential side effects and complications, including, but not necessarily limited to, infection, allergic reaction, local tissue breakdown, temporary as well as permanent nerve injury, paralysis, stroke and possible , the patient indicated that the patient understood and agreed to proceed. An informed consent document was signed by the patient, witnessed by a nurse, and placed in the patient's chart. Additionally, other treatment options including modalities, medications, and physical therapy were reviewed with the patient. After review of previous anaesthesic history and IV conscious sedation the patient was deemed safe to proceed with today?s procedure with IV conscious sedation as ASA class II designation. Safety time-out was performed to confirm patient ID, procedure to be performed and site of procedure. IV sedation was accomplished with a combination of 2mg of Versed administered by the RN after DO order, titrated to patient comfort during the course of the procedure while the patient remained responsive to all verbal commands. In the prone position, following sterile prep and drape of the lumbar region, the L5/S1 translaminar space was identified fluoroscopically. The skin was anesthetized via a 25-gauge, 1.5-inch needle with 1% lidocaine solution. At this point, a 22-gauge short bevel spinal needle was atraumatically introduced and advanced under fluoroscopic guidance into the region of the L5/S1 translaminar space. Depth was confirmed on lateral view. Radiological data, including multiple fluoroscopic views of the lumbar spine, reveal a spinal needle at the L5/S1 translaminar space. Lateral views then show placement of the needle in the epidural space. Subsequent views show contrast material flowing superiorly and inferiorly in the epidural space. No vascular or intrathecal uptake is observed. At this point, using loss of resistance technique with saline and air, the epidural space was entered. This was confirmed following negative aspiration with injection of approximately 1.5cc of Isovue 200, showing excellent epidural flow without vascular or intrathecal uptake. At this point, 1 cc of 1% lidocain e solution combined with 2cc or 10mg of dexamethasone and 6mg of betamethasone was injected without incident. The patent tolerated the procedure without signs of symptoms of complications prior to transfer to the recovery area for further monitoring. The patient was then transferred to the recovery area where they were observed for an appropriate period of time after the injection. The patient reported a VAS score of 6 prior to the procedure and a post-procedure VAS of 0. POST OP INSTRUCTIONS The patient was provided a Pain Log to continue to record their response to the target-specific procedure prior to follow-up visit with their referring physician. Additionally, specific post-injection care instructions and a contact number to our office were provided if concerns arise regarding possible complications associated with the procedure are suspected.
[2023-09-04 10:34] VITALS: BP 123/68; PULSE 56; RESP 16; O2SAT 97
[2023-09-04 10:49] VITALS: BP 124/70; PULSE 57; RESP 18; O2SAT 99
== END 2023-09-04 10:55 | disposition home or self-care (01) ==
PROVIDERS: PCP Family Medicine; Referring Provider Physical Medicine & Rehabilitation; Visit Provider Physical Medicine & Rehabilitation
DX: M51.17 Intervertebral disc disorders with radiculopathy, lumbosacral region (principal); M48.07 Spinal stenosis, lumbosacral region
CPT/HCPCS: 62323; 99152; J0702; J1100; J2250; J3490

== ENCOUNTER → 2024-02-05 10:03 | Outpatient (CLI) | payer BC, SELFPAY ==
[2023-07-16 11:41] VITALS: BMI 21.4
--- NOTE | 2024-02-05 10:06 | DI.RAD.S_ITS ---
PROCEDURE: XR CHEST 2V INDICATIONS: Dyspnea on exertion TECHNIQUE: 2 views of the chest were acquired. COMPARISON: CT, CT CHEST ABD PEL W CON, 08/29/2023, 15:10. FINDINGS: Surgical changes and devices: None. Lungs and pleura: Lungs are clear. No pleural effusions or pneumothorax. Mediastinum: Mediastinal contours are normal. Heart size is normal. Bones and chest wall: Moderate to severe dextroscoliosis. No suspicious bony abnormalities. Soft tissues appear unremarkable. IMPRESSION: No acute cardiopulmonary abnormality is seen. Dictated by: Kashif yLnch M.D. on 02/05/2024 at 13:37 Approved by: Kashif Lynch M.D. on 02/05/2024 at 13:39
== END ==
LOC: RAD 10:05
PROVIDERS: PCP Family Medicine; Referring Provider Physician Assistant; Visit Provider Physician Assistant
DX: R53.83 Other fatigue (principal); R06.09 Other forms of dyspnea; M41.9 Scoliosis, unspecified; Z85.038 Personal history of other malignant neoplasm of large intestine
CPT/HCPCS: 71046

== ENCOUNTER → 2024-02-11 14:57 | Outpatient (CLI) | payer BC, SELFPAY ==
[2023-07-16 11:41] VITALS: BMI 21.4
== END ==
LOC: RESP 14:57
PROVIDERS: PCP Family Medicine; Referring Provider Physician Assistant; Visit Provider Physician Assistant
DX: R06.09 Other forms of dyspnea (principal); R53.83 Other fatigue; M41.9 Scoliosis, unspecified; R94.2 Abnormal results of pulmonary function studies
CPT/HCPCS: 94060; 94726; 94729

== ENCOUNTER → 2024-02-25 09:51 | Outpatient (CLI) | payer BC, SELFPAY ==
[2023-07-16 11:41] VITALS: BMI 21.4
== END ==
LOC: CAR 09:52
PROVIDERS: Family Provider Family Medicine; PCP Family Medicine; Referring Provider Physician Assistant; Visit Provider Physician Assistant
DX: R06.02 Shortness of breath (principal); R00.1 Bradycardia, unspecified
CPT/HCPCS: 93246

== ENCOUNTER → 2024-02-25 10:04 | Outpatient (CLI) | payer BC, SELFPAY ==
[2023-07-16 11:41] VITALS: BMI 21.4
[2024-02-25 11:00] LABS: Add Manual Diff / Slide Review NO; Basophils Absolute Auto 0 /uL (0-100); Basophils Percent Auto 0.7 % (0-2); Eosinophils Absolute Auto 0 /uL (0-450); Eosinophils Percent Auto 0.8 % (2-4); Hematocrit 44.1 % (36-46); Hemoglobin 14.9 g/dL (12.0-16.0); Lymphocytes Absolute Auto 1900 /uL (1100-4500); Lymphocytes Percent Auto 34.1 % (25-40); Mean Corpuscular HGB Conc 33.9 % (30-36); Mean Corpuscular Hemoglobin 29.4 PG (26-34); Mean Corpuscular Volume 86.8 fL (80-100); Monocytes Absolute Auto 300 /uL (0-900); Monocytes Percent Auto 5.9 % (3-14); Neutrophils Absolute Auto 3300 /uL (1500-7000); Neutrophils Percent Auto 58.5 % (50-75); Platelet Count 217 X10^3/uL (150-400); Red Blood Cell Count 5.08 X10^6/uL (4.0-5.2); Red Cell Distribution Width 13.6 % (11.6-14.8); White Blood Cell Count 5.7 X10^3/uL (4.5-11.0)
[2024-02-25 11:09] LABS: HEMOLYSIS < 15 (0-50); Iron 120 ug/dL (37-170)
[2024-02-25 11:11] LABS: Alanine Aminotransferase 34 IU/L (<35); Albumin 4.5 g/dL (3.5-5.0); Albumin Globulin Ratio 1.5 (1.0-2.8); Alkaline Phosphatase 106 U/L (38-126); Aspartate Aminotransferase 33 IU/L (14-36); BUN Creatinine Ratio 16.9 (6-22); Bilirubin Total 0.9 mg/dL (0.2-1.3); Blood Urea Nitrogen 13 mg/dL (7-17); Calcium 8.9 mg/dL (8.4-10.2); Carbon Dioxide 29 mmol/L (22-32); Chloride 104 mmol/L (98-107); Cholesterol 212 mg/dL (140-199); Estimated Glomerular Filt Rate > 60 mL/min (>60); Glucose 86 mg/dL (80-110); HDL Cholesterol 60 mg/dL (40-60); HEMOLYSIS < 15 (0-50); LDL Cholesterol Calculated 123 mg/dL (<100); Sodium 139 mmol/L (137-145); Total Protein 7.5 g/dL (6.3-8.2); Triglycerides 145 mg/dL (35-150)
[2024-02-25 11:20] LABS: Percent Iron Saturation 35 % (15-50); Total Iron Binding Capacity 341 ug/dL (265-497); Transferrin 266 mg/dL (206-381)
[2024-02-25 11:43] LABS: TSH w/ Reflex to FT4 0.97 uIU/mL (0.47-4.68)
[2024-02-25 11:44] LABS: Carcinoembryonic Antigen 1.4 ng/mL (0.1-3.0)
[2024-02-25 12:04] LABS: Vitamin B12 > 1000 pg/mL (239-931)
[2024-02-25 15:06] LABS: Vitamin D 25 Hydroxy (D3) 67.1 ng/mL (30.0-100.0)
== END ==
LOC: LAB 10:05
PROVIDERS: Surgery; Family Provider Family Medicine; PCP Family Medicine; Referring Provider Physician Assistant; Visit Provider Physician Assistant
DX: R53.83 Other fatigue (principal); R06.09 Other forms of dyspnea; E55.9 Vitamin D deficiency, unspecified; E03.9 Hypothyroidism, unspecified; M41.9 Scoliosis, unspecified; Z85.038 Personal history of other malignant neoplasm of large intestine
CPT/HCPCS: 36415; 80053; 80061; 82306; 82378; 82607; 83540; 83550; 84443; 85025

== ENCOUNTER → 2024-03-11 10:20 | Outpatient (CLI) | payer BC, SELFPAY ==
[2023-07-16 11:41] VITALS: BMI 21.4
--- NOTE | 2024-03-11 10:20 | DI.ECHO.S_ITS ---
[place] +---------+ [facility] : : [address] : : [place] : : [id number] : : Phone: [phone] Echocardiogram Report + + :Name: RAGINI BALL Study Date: 03/11/2024 Height: 67 in : :[facility] ReadingLocation: Weight: 145 lb : : Gender: Female BSA: 1.8 m2 : :: 1965 Age: 59 yrs BP: 142/90 mmHg: :Reason For Study: DYSPNEA ON EXERTION : :Ordering Physician: ROSANGELA, : :JULIO Campos Performed By: Zac Hearn : :Referring: JULIO ADAMES : + + Interpretation Summary The ejection fraction is estimated to be 60-65%. There is no significant valvular heart disease. Procedure: A two-dimensional transthoracic echocardiogram with color flow and Doppler was performed. The study quality was technically adequate. There is no prior echocardiogram noted for this patient. The patient was in sinus rhythm with heart rates between 49-61 bpm during the exam. Left Ventricle: The left ventricle is normal in size and wall thickness. The ejection fraction is estimated to be 60-65%. Left ventricular wall motion is normal. Right Ventricle: The right ventricle is normal size. The right ventricular systolic function is normal. Atria: The left atrial size is normal. Right atrial size is normal. The interatrial septum grossly appears intact with no obvious evidence for an atrial septal defect. Mitral Valve: The mitral valve is normal. There is no mitral valve stenosis. There is trace mitral regurgitation. Aortic Valve: The aortic valve is trileaflet. There is no aortic valve stenosis. There is mild aortic regurgitation. Tricuspid Valve: The tricuspid valve is normal. There is no tricuspid stenosis. There is a trace or physiologic amount of tricuspid regurgitation. The right ventricular systolic pressure is estimated to be at least 20.8 mmHg based on an estimated right atrial pressure of 3 mm Hg. Pulmonic Valve: The pulmonic valve is not well visualized. There is no pulmonic valvular stenosis. There is mild pulmonic regurgitation. Great Vessels: The aortic root is normal size. The ascending aorta is mildly enlarged. The IVC is of normal diameter and collapses greater than 50% with a sniff. This suggests a low right atrial pressure of 3 mm Hg. Pericardium/ Pleura There is no pericardial effusion. There is no pleural effusion. MMode/2D Measurements & Calculations LVIDd: 4.8 cm LVOT diam: 2.0 cm LVIDs: 2.9 cm Ao root diam: 3.2 cm FS: 39.1 % asc Aorta Diam: 3.9 cm IVSd: 0.77 cm Ao Arch Diam (Prox Trans): 1.9 cm LVPWd: 0.88 cm LV odonnell. diameter/BSA (cm/m^2): 2.7 LV sys. diameter/BSA (cm/m^2): 1.7 LA A2 area: 14.8 cm2 RA long axis: 4.1 cm LA A4 area: 18.7 cm2 RA area: 15.8 cm2 LA length (vol): 5.6 cm RA vol: 52.2 ml LA vol: 42.4 ml RA : 29.6 ml/m2 LA vol index: 24.0 ml/m2 IVC diam: 1.2 cm RVD1 (basal): 3.9 cm RVD2 (mid): 3.2 cm TAPSE: 3.2 cm Doppler Measurements & Calculations Ao V2 max: 118.9 cm/sec LVOT Max Ludwig: 97.6 cm/sec Ao V2 mean: 91.5 cm/sec LV V1 max P.8 mmHg Ao max P.7 mmHg LV V1 VTI: 25.0 cm Ao mean P.7 mmHg DOUGLAS(I,D): 2.5 cm2 Ao V2 VTI: 31.7 cm DOUGLAS(V,D): 2.6 cm2 sev ratio: 0.79 DOUGLAS indexed to BSA (cm^2/m^2): 1.4 MV E max ludwig: 88.5 cm/sec TR max ludwig: 211.2 cm/sec MV A max ludwig: 32.1 cm/sec TR max P.8 mmHg MV E/A: 2.8 PA V2 max: 76.6 cm/sec Med Peak E' Ludwig: 10.4 cm/sec PA V2 mean: 56.6 cm/sec E/E' med: 8.5 PA mean P.4 mmHg Lat Peak E' Ludwig: 11.7 cm/sec E/E' lat: 7.5 E/e' average: 8.0 MV dec time: 0.16 sec SV(LVOT): 79.1 ml Reading Physician:11:48 AM
== END ==
PROVIDERS: Family Provider Family Medicine; PCP Family Medicine; Referring Provider Physician Assistant; Visit Provider Physician Assistant
DX: I35.1 Nonrheumatic aortic (valve) insufficiency (principal); I37.1 Nonrheumatic pulmonary valve insufficiency; R53.83 Other fatigue; I77.89 Other specified disorders of arteries and arterioles; R06.09 Other forms of dyspnea; E55.9 Vitamin D deficiency, unspecified; E03.9 Hypothyroidism, unspecified; M41.9 Scoliosis, unspecified
CPT/HCPCS: 93306

== ENCOUNTER 2024-04-01 09:13 | Outpatient (CLI) | payer BC, SELFPAY ==
[2023-07-16 11:41] VITALS: BMI 21.4
[2024-04-01] VITALS (9 sets, daily range): BP systolic 112–133; BP diastolic 59–81; PULSE 46–57; RESP 12–20; TEMP 36; O2SAT 98–100
--- NOTE | 2024-04-01 09:45 | DI.RAD.S_ITS ---
PROCEDURE: PAIN L INTERLAMINAR/CAUDAL INJ INDICATIONS: Para right L5-S1 translaminar PASCUAL COMPARISON: [facility], , PAIN L INTERLAMINAR/CAUDAL INJ, 09/04/2023, 11:21. FINDINGS: Fluoroscopic spot filming was performed to verify placement of spinal needles at the right L5-S1 level(s), as labeled on the films. Appropriate location(s) of the needle tip(s) was confirmed by injection of iodinated contrast. IMPRESSION: Intra procedural examination demonstrating appropriate positions of the needles. Dictated by: Norman Cantu M.D. on 04/01/2024 at 16:10 Approved by: Norman Cantu M.D. on 04/01/2024 at 16:11
[2024-04-01] MEDS: MIDAZOLAM 2 MG/2 ML VIAL 1 MG IV ×2 (10:32→10:37)
[2024-04-01] MEDS: BUPIVACAINE 0.25% (PF) VIAL 2 ML INJ (10:34)
[2024-04-01] MEDS: BETAMETHASONE 30 MG/5 ML MDV 6 MG INJ (10:35)
[2024-04-01] MEDS: DEXAMETHASONE 10 MG/ML VIAL INJ (10:35)
[2024-04-01] MEDS: LIDOCAINE 1% 20 ML INJ (10:36)
[2024-04-01] MEDS: iopamidoL 15 ML VIAL 3 ML INJ (10:36)
--- NOTE | 2024-04-01 10:50 | P.PCN_ITS ---
Date/Time/Diagnoses Date of procedure: 04/01/24 Time of procedure: 10:51 Pre-procedure diagnosis: 1. HNP WITH RADICULAR FEATURES, 2. MULTILEVEL CENTRAL STENOSIS, Post-procedure diagnosis: same Procedure Notes Procedure: 1. FLUOROSCOPICALLY GUIDED CONTRAST CONTROLLED INTERLAMINAR EPIDURAL STEROID INJECTION - L5/S1 Indications: Marcia is referred by Dr. Mccallum for treatment of Bilateral Foraminal Stenosis L>R LE symptoms. Physician: Eyad Nunez Total Fluoroscopy time (seconds): 8 Total sedation minutes: 12 Complications: none Procedure in detail & Post-procedure care: FINDINGS Multilevel Central Spinal Stenosis with Nerve Root Compression DESCRIPTION OF PROCEDURE Fluoroscopically guided, contrast-controlled L5/S1 translaminar epidural steroid injection. Following review of allergy and review of potential side effects and complications, including, but not necessarily limited to, infection, allergic reaction, local tissue breakdown, temporary as well as permanent nerve injury, paralysis, stroke and possible , the patient indicated that the patient understood and agreed to proceed. An informed consent document was signed by the patient, witnessed by a nurse, and placed in the patient's chart. Additionally, other treatment options including modalities, medications, and physical therapy were reviewed with the patient. After review of previous anaesthesic history and IV conscious sedation the patient was deemed safe to proceed with today?s procedure with IV conscious sedation as ASA class II designation. Safety time-out was performed to confirm p atient ID, procedure to be performed and site of procedure. IV sedation was accomplished with a combination of 2mg of Versed administered by the RN after DO order, titrated to patient comfort during the course of the procedure while the patient remained responsive to all verbal commands. In the prone position, following sterile prep and drape of the lumbar region, the L5/S1 translaminar space was identified fluoroscopically. The skin was anesthetized via a 25-gauge, 1.5-inch needle with 1% lidocaine solution. At this point, a 22-gauge short bevel spinal needle was atraumatically introduced and advanced under fluoroscopic guidance into the region of the L5/S1 translaminar space. Depth was confirmed on lateral view. Radiological data, including multiple fluoroscopic views of the lumbar spine, reveal a spinal needle at the L5/S1 translaminar space. Lateral views then show placement of the needle in the epidural space. Subsequent views show contrast material flowing superiorly and inferiorly in the epidural space. No vascular or intrathecal uptake is observed. At this point, using loss of resistance technique with saline and air, the epidural space was entered. This was confirmed following negative aspiration with injection of approximately 1.5cc of Isovue 200, showing excellent epidural flow without vascular or intrathecal uptake. At this point, 1 cc of 1% lidocaine solution combined with 2cc or 10mg of dexamethasone and 6mg of betamethasone was injected without incident. The patent tolerated the procedure without signs of symptoms of complications prior to transfer to the recovery area for further monitoring. The patient was then transferred to the recovery area where they were observed for an appropriate period of time after the injection. The patient reported a VAS score of 6 prior to the procedure and a post-procedure VAS of 0. POST OP INSTRUCTIONS The patient was provided a Pain Log to continue to record their response to the target-specific procedure prior to follow-up visit with their referring physician. Additionally, specific post-injection care instructions and a contact number to our office were provided if concerns arise regarding possible complications associated with the procedure are suspected.
== END 2024-04-01 11:09 | disposition home or self-care (01) ==
PROVIDERS: Family Provider Family Medicine; PCP Family Medicine; Referring Provider Physical Medicine & Rehabilitation; Visit Provider Physical Medicine & Rehabilitation
DX: M51.17 Intervertebral disc disorders with radiculopathy, lumbosacral region (principal); M48.07 Spinal stenosis, lumbosacral region
CPT/HCPCS: 62323; 99152; J0702; J1100; J2250; J3490

== ENCOUNTER → 2024-05-04 10:20 | Outpatient (CLI) | payer BC, SELFPAY ==
[2023-07-16 11:41] VITALS: BMI 21.4
[2024-05-05 04:09] LABS: Alpha 1 Anti Trypsin 143 mg/dL (101-187)
[2024-05-13 13:36] LABS: Alpha 1 Antitrypsin 133 mg/dL (101-187); Alpha 1 antitrypsin pheno Rflx Not Indicated (.)
== END ==
PROVIDERS: Family Provider Family Medicine; PCP Family Medicine; Referring Provider Family Medicine; Visit Provider Family Medicine
DX: J44.89 Other specified chronic obstructive pulmonary disease (principal)
CPT/HCPCS: 36415; 81332; 82103

== ENCOUNTER → 2024-06-02 13:55 | Outpatient (CLI) | payer BC, SELFPAY ==
[2023-07-16 11:41] VITALS: BMI 21.4
[2024-06-02 15:36] LABS: Hematocrit 43.2 % (36-46); Hemoglobin 14.4 g/dL (12.0-16.0)
== END ==
PROVIDERS: Family Provider Family Medicine; PCP Family Medicine; Referring Provider Family Medicine; Visit Provider Family Medicine
DX: Z00.8 Encounter for other general examination (principal); J44.89 Other specified chronic obstructive pulmonary disease; R94.2 Abnormal results of pulmonary function studies; R09.02 Hypoxemia; R06.09 Other forms of dyspnea; Z83.6 Family history of other diseases of the respiratory system
CPT/HCPCS: 36415; 85014; 85018; 94060; 94726; 94729

== ENCOUNTER 2024-06-29 09:34 | Day surgery (SDC) | payer BC, SELFPAY ==
[2023-07-16 11:41] VITALS: BMI 21.4
[2024-06-29 10:40] VITALS: BP 125/79; PULSE 67; RESP 18; TEMP 36.7; O2SAT 99
--- NOTE | 2024-06-29 11:12 | PM.HP.1 ---
History of Present Illness History of Present Illness Date Patient Seen: 06/29/24 Time Patient Seen: 11:12 Chief complaint: Colonoscopy Narrative: Ms Thao is a 58 y.o woman hx of colon cancer T2N0 (18 nodes negative) sp laparoscopic right hemicolectomy 07/16/2023. She is here today for surveillance colonoscopy. No abdominal concerns. FOR[facility]LY [facility] Medical History Colon cancer Facet arthropathy, cervical History of COVID-19 (2020) Low back pain Thoracic stenosis Lumbar stenosis with neurogenic claudication Facet arthropathy, lumbar Cervical stenosis of spinal canal Osteoarthritis Sleep apnea (~2011) Depression (~1986) Anxiety (~2013) Migraines (~1999) Headache (~1993) Scoliosis Chronic back pain (~1996) Carpal tunnel syndrome (~1995) Acne (~1980) Chicken pox (~1966) Fibroids (~1990) Hypothyroidism (~2002) Carpal tunnel syndrome (03/02/15) Bunion (03/02/15) Surgical History Anesthesia Deviated septum (~2012) History of lumbosacral spine surgery History of carpal tunnel repair (~2014) Status post dilation and curettage (~1990) History of tonsillectomy (~1966) Family History Brother Age: 61 Heart disease Brother Age: 46 Essential hypertension High cholesterol Mental health problem Child Age: 37 Mental health problem Father Age: 87 Heart disease History of shingles Mother Age: 86 Mental health problem Grandmother Diabetes mellitus Arthritis Sister Age: 53 Mental health problem Social History marital status: household members: spouse lives independently: Yes occupational status: previously employed Smoking Status: Never smoker alcohol intake: never substance use type: does not use during the past year weight has: remained stable well-balanced diet: daily or most days caffeine: No Type(s) of exercise: walking, bicycling, yoga and additional Meds Home Medications and Allergies Home Medications Medication Instructions Recorded Confirmed Type diclofenac sodium 75 mg See Rx Instructions .Route 05/20/22 06/29/24 Rx tablet,delayed release .COMPLEX #180 tabs escitalopram oxalate 10 mg tablet 15 mg (1.5 x 10 mg) PO DAILY #135 03/10/24 06/29/24 Rx tabs levothyroxine 88 mcg tablet See Rx Instructions .Route 04/19/24 06/29/24 Rx (Synthroid) .COMPLEX #90 tabs meloxicam 15 mg tablet 15 mg PO DAILY #30 tabs 05/14/24 06/29/24 Rx Allergies Allergy/AdvReac Type Severity Reaction Status Date / Time meperidine [From DEMEROL] Allergy Unknown hallucinations Verified 06/29/24 10:30 at age 11yrs Exam Vital Signs (past 8 hours): - 06/29/24 10:40 Temperature 98.0 F Pulse Rate 67 Respiratory Rate 18 Blood Pressure 125/79 Pulse Oximetry 99 Oxygen Delivery Method Room Air Oxygen Delivery Method Room Air Narrative Exam Narrative: General adult woman alert oriented no acute distress Chest nonlabored respiration Extremities warm well perfused Assessment & Plan Assessment and plan (1) History of colon cancer: Problem details: Treated w/surgery Status: Chronic Assessment & Plan narrative: Ms Thao is a 58 y.o woman hx of colon cancer T2N0 (18 nodes negative) sp laparoscopic right hemicolectomy 07/16/2023 surveillance colonoscopy is recommended. Technical details were discussed. Risks, benefits, alternatives explained. Risks including but not limited to myocardial infarction, aspiration, bleeding, pain, missed lesion, incomplete examination, need for further radiographic studies, intestinal injury, and need for major abdominal surgery were discussed. All questions were answered to their satisfaction, and they are in agreement with this plan. Time-Based Coding :: [TOTAL MINUTES] spent with patient and on the chart (including review of chart, obtaining history, exam, reviewing outside data, placing orders, documenting exam and treatment plan, and counseling patient) on [DATE].
[2024-06-29 11:41] VITALS: BP 94/58; PULSE 68; RESP 20; TEMP 36.8; O2SAT 95
--- NOTE | 2024-06-29 11:45 | P.OP.COLON_ITS ---
Operative Date/Time/Diagnoses Date of procedure: 06/29/24 Time of procedure: 11:46 Pre-op diagnosis: History of colon cancer Procedure & Clinicians Study performed: Screening colonoscopy Same procedure as scheduled: Yes Indications: 59-year-old woman 1 year status post right hemicolectomy for stage I colon cancer. Surgeon: Festus Elkins Procedure Notes Procedure in detail: The history and physical was performed/updated and the patient is ASA class is 2. The procedure was discussed in detail with the patient. Potential risks complications including infection, bleeding, missed diagnosis, perforation, need for surgery, and were explained. Their questions were answered and informed consent was obtained. Patient was brought to the procedure room and placed standard monitoring equipment. The patient's vital signs were monitored continuously throughout the entire procedure. Prior to starting time-out was performed. The patient was placed in the left lateral recumbent position. Procedural sedation was administered by anesthesia. Examination began with a thorough inspection of the perianal area there was no evidence of fissures, fistulae, external hemorrhoids or cutaneous malignancy. The colonoscopy scope was then placed into the anal ca nal and was advanced forward. We reached the ileocolonic anastomosis which was normal in appearance and the scope was slowly withdrawn. The patient tolerated the procedure well. They will be discharged once criteria are met. The prep was of good/excellent quality. The withdrawl time was 6 minutes. FINDINGS * Unremarkable colonoscopy. * Normal ileocolonic anastomosis. * Normal healthy colonic mucosa without mass or polyps. Specimen(s): none sent Impression: Normal colonoscopy status post right hemicolectomy Post-procedure Recommendations: Colonoscopy in 1 year Disposition: same day surgery
[2024-06-29 11:46] VITALS: BP 107/61; PULSE 62; RESP 20; TEMP 36.8; O2SAT 95
[2024-06-29 11:51] VITALS: BP 99/68; PULSE 60; RESP 20; TEMP 36.7; O2SAT 94
[2024-06-29 11:55] VITALS: BP 102/71; PULSE 61; RESP 16; TEMP 36.8; O2SAT 96
--- NOTE | 2024-06-29 12:28 | SUR.PHASEII ---
Verified with Dr. Elkins patient may discharge home.
== END 2024-06-29 12:20 | disposition home or self-care (01) ==
PROVIDERS: Family Provider Family Medicine; PCP Family Medicine; Referring Provider Surgery; Visit Provider Surgery
PROC: 0DJD8ZZ Inspection of Lower Intestinal Tract, Via Natural or Artificial Opening Endoscopic (ICD-10-PCS; CPT 45378; principal; 2024-06-29 10:45)
DX: Z12.11 Encounter for screening for malignant neoplasm of colon (principal); Z85.038 Personal history of other malignant neoplasm of large intestine
CPT/HCPCS: 45378; J2704

== ENCOUNTER → 2024-07-08 15:14 | Outpatient (CLI) | payer BC, SELFPAY ==
[2023-07-16 11:41] VITALS: BMI 21.4
[2024-07-08 17:00] LABS: Add Manual Diff / Slide Review NO; Basophils Absolute Auto 100 /uL (0-100); Basophils Percent Auto 0.8 % (0-2); Eosinophils Absolute Auto 100 /uL (0-450); Eosinophils Percent Auto 0.8 % (2-4); Hematocrit 44.3 % (36-46); Hemoglobin 14.8 g/dL (12.0-16.0); Lymphocytes Absolute Auto 2300 /uL (1100-4500); Lymphocytes Percent Auto 36.5 % (25-40); Mean Corpuscular HGB Conc 33.4 % (30-36); Mean Corpuscular Hemoglobin 28.9 PG (26-34); Mean Corpuscular Volume 86.5 fL (80-100); Monocytes Absolute Auto 400 /uL (0-900); Monocytes Percent Auto 5.6 % (3-14); Neutrophils Absolute Auto 3500 /uL (1500-7000); Neutrophils Percent Auto 56.3 % (50-75); Platelet Count 220 X10^3/uL (150-400); Red Blood Cell Count 5.12 X10^6/uL (4.0-5.2); Red Cell Distribution Width 13.4 % (11.6-14.8); White Blood Cell Count 6.3 X10^3/uL (4.5-11.0)
[2024-07-08 17:37] LABS: C-Reactive Protein Quant < 0.5 mg/dL (<1.0)
[2024-07-08 17:39] LABS: Rheumatoid Factor 9.2 IU/mL (<12.0)
[2024-07-08 18:10] LABS: Erythrocyte Sedimentation Rate 2 MM/HR (0-20)
[2024-07-10 07:40] LABS: CCP Antibodies IgG/IgA 4 units (0-19)
== END ==
LOC: LAB 15:16
PROVIDERS: Family Provider Family Medicine; PCP Family Medicine; Referring Provider Family Medicine; Visit Provider Family Medicine
DX: M25.50 Pain in unspecified joint (principal); G47.39 Other sleep apnea; J96.01 Acute respiratory failure with hypoxia
CPT/HCPCS: 36415; 85025; 85651; 86140; 86200; 86430

== ENCOUNTER → 2024-07-20 09:50 | Outpatient (CLI) | payer BC, SELFPAY ==
[2023-07-16 11:41] VITALS: BMI 21.4
--- NOTE | 2024-07-20 09:52 | DI.NM.S_ITS ---
PROCEDURE: NM ALLEGRA PERF SPECT REST & STR Rest and exercise myocardial perfusion SPECT with gated imaging and ejection fraction RADIOPHARMACEUTICAL: 12.3 mCi Tc-99m sestamibi IV at rest and 26 mCi Tc-99m sestamibi IV at peak exercise. A 3-tai-smjqckvo was performed. INDICATIONS: SOB,NSVT TECHNIQUE: Radiopharmaceutical was injected at peak stress test, and also at rest. SPECT images were obtained. SPECT myocardial perfusion images were displayed in short axis, horizontal long axis, and vertical long axis views. Gated images were reviewed using Kaseya software. COMPARISON: None. CARDIAC STRESS: A standard Shaquille treadmill exercise tolerance test was performed by the patient under the supervision of an attending staff. The patient exercised for 12 minutes and 7 seconds; 12.8 METS; functional aerobic impairment (HERNESTO) is -76%. Hemodynamic data: There is normal blood pressure and heart rate response to exercise stress. Patient achieved 99% of maximum predicted heart rate at peak exercise. Peak blood pressure 196/90. Symptoms: Patient denied chest pain during exercise. EKG: Rest ECG sinus bradycardia 52 bpm. Exercise ECG sinus tachycardia, no ST segment changes or arrhythmia. FINDINGS: Raw data: There is good myocardial labeling by radiotracer. No significant motion artifacts. Gwwj-ix-ypetk ratio is 0.2 to (normal is less than 0.38 for sestamibi tracer, and less than 0.50 for thallium tracer). Left ventricle function: Gated images demonstrate normal left ventricle wall thickening. No segmental wall motion abnormality. No transient ischemic dilation; TID is 0.85 (normal less than 1.3). The left ventricle resting end-diastolic volume is 99 mL. Left ventricle stress ejection fraction is >75%; normal values are above 45%. Myocardial perfusion: There is normal distribution of activity in the left and right ventricular myocardium. No fixed or reversible perfusion defects. IMPRESSION: Low risk study. No evidence of exercise-induced ischemia on ECG or SPECT imaging. Normal LV size with hyperdynamic function. Normal hemodynamic response. Very good exercise capacity. Dictated by: Kylah Hyde D.O. on 07/20/2024 at 17:20 Approved by: Kylah Hyde D.O. on 07/20/2024 at 17:28
== END ==
LOC: NUCM 09:51
PROVIDERS: Family Provider Family Medicine; PCP Family Medicine; Referring Provider Internal Medicine Cardiovascular Disease; Visit Provider Internal Medicine Cardiovascular Disease
DX: I47.29 Other ventricular tachycardia (principal); R06.02 Shortness of breath
CPT/HCPCS: 78452; 93017; A9502

== ENCOUNTER → 2024-07-20 09:52 | Outpatient (CLI) | payer BC, SELFPAY ==
[2023-07-16 11:41] VITALS: BMI 21.4
--- NOTE | 2024-07-20 09:54 | DI.CT.S_ITS ---
PROCEDURE: CT CHEST HIGH RESOLUTION INDICATIONS: shortness of breath TECHNIQUE: Noncontrast 1.0 and 5.0 mm thick contiguous axial sections from the pulmonary apex to the posterior costophrenic angles, with 7 mm thick coronal and sagittal MIP reformats. 1 mm thick dynamic expiratory images acquired through the upper, mid, and lower lungs. 1.0 mm thick axial sections acquired from the sandra to the posterior costophrenic angles in the prone end-inspiration position. For radiation dose reduction, the following was used: automated exposure control, adjustment of mA and/or kV according to patient size. COMPARISON: [facility], CT, CT CHEST ABD PEL W CON, 08/29/2023, 15:10. FINDINGS: Image quality: Diagnostic. Lower Neck: No enlarged lymph nodes. Thyroid: No thyroid nodules which require sonographic follow up, per consensus guidelines. Axillae: No enlarged lymph nodes. Chest Wall: Asymmetric soft tissue thickening superior to the right sternoclavicular joint. Skin marker at this site. No convincing fluid collection. Bones: Scoliosis. Left Rizvi darwin. No suspicious osseous lesion. There is subchondral cystic change at the right sternoclavicular joint. Lungs and Pleura: No pneumothorax or pleural effusions. Tree-in-bud nodular opacity in the right upper lobe, (3/130), increased. There is nearby distal mucus airway plugging. The central airways are clear. No consolidation. Mild streaky opacity at the lung bases is unchanged which persists on the prone sequences and is most consistent with scarring. No air trapping. No honeycombing. Heart: Heart size is prominent. No pericardial effusion. Thoracic Vessels: Ascending aorta measures approximately 4 cm, (4/51), not significantly changed. Mediastinum and Priscilla: No enlarged lymph nodes. Esophagus: No wall thickening. No hiatal hernia. Upper Abdomen: Visualized upper abdomen solid organs and bowel loops appear normal. IMPRESSION: 1. Mild tree-in-bud nodular opacity in the right upper lobe. Areas of distal mucus airway plugging. Findings most consistent with bronchiolitis. 2. Mild scarring at the lung bases. No interstitial lung disease identified. 3. Asymmetric soft tissue thickening superior to the right sternoclavicular joint. There is asymmetric subchondral cystic change at the right sternoclavicular joint which is progressed compared to August 2023. Findings could signify infectious/inflammatory changes at the right sternoclavicular joint. Recommend clinical correlation. -MRI with IV contrast could be considered for further evaluation. 4. Ascending aortic aneurysm measuring approximately 4 cm. Dictated by: Gualberto Whitehead M.D. on 07/20/2024 at 12:16 Approved by: Gualberto Whitehead M.D. on 07/20/2024 at 12:33
== END ==
LOC: CT 09:52
PROVIDERS: Family Provider Family Medicine; PCP Family Medicine; Referring Provider Internal Medicine Critical Care Medicine; Visit Provider Internal Medicine Critical Care Medicine
DX: D49.2 Neoplasm of unspecified behavior of bone, soft tissue, and skin (principal); I71.21 Aneurysm of the ascending aorta, without rupture; I47.29 Other ventricular tachycardia; R06.09 Other forms of dyspnea; R06.02 Shortness of breath; J98.4 Other disorders of lung
CPT/HCPCS: 71250; 78452; 93017; A9502

== ENCOUNTER 2024-09-07 08:17 | Outpatient (CLI) | payer BC, SELFPAY ==
[2024-08-03 10:46] VITALS: BMI 21.4
[2024-09-07] VITALS (8 sets, daily range): BP systolic 114–130; BP diastolic 67–91; PULSE 52–64; RESP 10–18; TEMP 36.7; O2SAT 95–100
--- NOTE | 2024-09-07 08:18 | DI.RAD.S_ITS ---
PROCEDURE: PAIN L/S TRANSFORAMINAL INJECT INDICATIONS: Right L4-5 transforaminal PASCUAL COMPARISON: None. FINDINGS/IMPRESSION: Fluoroscopic spot filming was performed to verify placement of spinal needles at the L4-5 level(s), as labeled on the films. Appropriate location(s) of the needle tip(s) was confirmed by injection of iodinated contrast. Dictated by: Calixto Balderrama M.D. on 09/07/2024 at 11:03 Approved by: Calixto Balderrama M.D. on 09/07/2024 at 11:03
[2024-09-07] MEDS: MIDAZOLAM 2 MG/2 ML VIAL IV (09:36)
[2024-09-07] MEDS: BUPIVACAINE 0.25% (PF) VIAL 2 ML INJ (09:40)
[2024-09-07] MEDS: DEXAMETHASONE 10 MG/ML VIAL INJ (09:40)
[2024-09-07] MEDS: iopamidoL 15 ML VIAL 3 ML INJ (09:40)
[2024-09-07] MEDS: BETAMETHASONE 30 MG/5 ML MDV 12 MG INJ (09:40)
--- NOTE | 2024-09-07 09:55 | P.PCN_ITS ---
Date/Time/Diagnoses Date of procedure: 09/07/24 Time of procedure: 09:55 Pre-procedure diagnosis: 1. FORAMINAL STENOSIS WITH LE SYMPTOMS Post-procedure diagnosis: same Procedure Notes Procedure: 1. FLUOROSCOPICALLY GUIDED CONTRAST CONTROLLED TRANSFORAMINAL EPIDURAL STEROID INJECTION - RIGHT L4/5 TFESI Indications: Marcia is referred by Dr. Mccallum for treatment of Foraminal Stenosis with Right LE Symptoms Physician: Eyad Nunez Total Fluoroscopy time (seconds): 8 Total sedation minutes: 10 Complications: none Procedure in detail & Post-procedure care: FINDINGS Foraminal Nerve Root Compression secondary to disc disease and facet hypertrophy DESCRIPTION OF PROCEDURE Following review of allergy and review of potential side effects and complications, including, but not necessarily limited to, infection, allergic reaction, local tissue breakdown, stroke, temporary or permanent nerve injury, paralysis, and possible , the patient indicated that the patient understood and agreed to proceed. An informed consent document was signed by the patient, witnessed by a nurse, and placed in the patient's chart. Additionally, other treatment options including medications, modalities, and physical therapy were reviewed with the patient. After review of previous anaesthesic history and IV conscious sedation the patient was deemed safe to proceed with today?s procedure with IV conscious sedation as ASA class II designation. Safety time-out was performed to confirm patient ID, procedure to be performed and site of procedure. IV sedation was accomplished with a combination of 2mg of Versed was administered by the RN after DO order, titrated to patient comfort during the course of the procedure while the patient remained responsive to all verbal commands In the prone position following sterile prep and drape of the lumbar region, the right L4/5 posterior neuroforamen was identified fluoroscopically. The skin was anesthetized via a 25-gauge 1.5-inch needle with 1% lidocaine solution. At this point, a 25-gauge 3.5-inch spinal needle was atraumatically introduced and advanced under fluoroscopic guidance through the posterior right L4/5 neuroforamen to approximately the anterior aspect of the canal. Depth was confirmed on lateral view. Following negative aspiration, injection of approximately 1.5cc of Isovue 200 under live fluoroscopy in the AP view conf irmed excellent flow along the nerve root, into the epidural space without vascular or intrathecal uptake observed Radiological data, including multiple fluoroscopic views of the lumbosacral spine, reveal a spinal needle at the right L4/5 posterior neuroforamen. Subsequent views show flow of contrast material flowing superiorly and inferiorly along the nerve root confirming epidural flow. Subsequently, a test dose of 1.5 cc of 1% lidocaine solution was administered and patient was observed for two minutes for signs or symptoms of complications, including abdominal pain, shortness of breath, bilateral upper or lower extremity weakness, nausea and vomiting, prior to steroid injection. At this point, a total of 2cc or 10mg of dexamethasone and 6mg of betamethasone was injected without incident. The procedure tolerated the procedure well without signs or symptoms of complications prior to transfer to the recovery area continued monitoring without incident. The patient was then transferred to the recovery area where they were observed for an appropriate time after the injection. The patient reported a VAS score of 7 prior to the procedure and a post- procedure VAS of 0. POST OP INSTRUCTIONS The patient was provided a Pain Log to continue to record their response to the target-specific procedure prior to follow-up visit with their referring ph ysician. Additionally, specific post-injection care instructions and a contact number to our office were provided if concerns arise regarding possible complications associated with the procedure are suspected.
== END 2024-09-07 10:10 | disposition home or self-care (01) ==
PROVIDERS: Family Provider Family Medicine; PCP Family Medicine; Referring Provider Physical Medicine & Rehabilitation; Visit Provider Physical Medicine & Rehabilitation
DX: M48.061 Spinal stenosis, lumbar region without neurogenic claudication (principal); M51.16 Intervertebral disc disorders with radiculopathy, lumbar region; M47.26 Other spondylosis with radiculopathy, lumbar region
CPT/HCPCS: 64483; 99152; J0702; J1100; J2250; J3490

== ENCOUNTER → 2024-09-15 10:11 | Outpatient (CLI) | payer BC, SELFPAY ==
[2024-08-03 10:46] VITALS: BMI 21.4
--- NOTE | 2024-09-15 | DI.MG.S_ITS ---
BILATERAL DIGITAL SCREENING MAMMOGRAM 3D/2D WITH CAD: 09/15/2024 CLINICAL: Routine screening. Comparison is made to exams dated: 08/29/2023 mammogram, 03/18/2022 mammogram, and 03/03/2020 mammogram - [facility]. The breasts are heterogeneously dense, which may obscure small masses (category c / 51-75% glandular tissue). Current study was also evaluated with a Computer Aided Detection (CAD) system. There are benign masses in both breasts. There also are benign calcifications in both breasts. No significant masses, calcifications, or other findings are seen in either breast. There has been no significant interval change. IMPRESSION: BENIGN There is no mammographic evidence of malignancy. A 1 year screening mammogram is recommended. Based on the Tyrer Cuzick model (a risk assessment model) the patient's lifetime risk is 5.8% and her 10 year risk is 2.4%. According to the ACR, ACS, and NCCN guidelines, an annual breast MRI exam along with mammogram is recommended if the patient's lifetime risk is 20% or greater. This exam was interpreted at Station ID: [id number]. NOTE: For mammograms, a report in lay terms will be sent to the patient. Approximately 15% of breast malignancies will not be visualized mammographically. In the management of a palpable breast mass, a negative mammogram must not discourage biopsy of a clinically suspicious lesion. Electronically Signed By: Irwin cee/sallie:09/15/2024 18:40:51 letter sent: Normal Exam ACR BI-RADS Category 2: Benign
== END ==
PROVIDERS: Family Provider Family Medicine; PCP Family Medicine; Referring Provider Family Medicine; Visit Provider Family Medicine
DX: Z12.31 Encounter for screening mammogram for malignant neoplasm of breast (principal)
CPT/HCPCS: 77063; 77067

== ENCOUNTER → 2024-11-01 10:29 | Outpatient (CLI) | payer BC, SELFPAY ==
[2024-08-03 10:46] VITALS: BMI 21.4
--- NOTE | 2024-11-01 10:30 | DI.RAD.S_ITS ---
PROCEDURE: XR TOE LT MIN 2V INDICATIONS: 5th digit pin TECHNIQUE: 3 views of the 5th toe(s) acquired. COMPARISON: None. FINDINGS: Bones: No fractures or dislocations. Moderate valgus angulation about the 1st metatarsophalangeal joint measures approximately 39?. No suspicious bony lesions. Soft tissues: No suspicious soft tissue densities. IMPRESSION: No acute bony abnormality. Moderate hallux valgus noted. Dictated by: Mainor Mckeon M.D. on 11/02/2024 at 3:00 Approved by: Mainor Mckeon M.D. on 11/02/2024 at 3:01
== END ==
PROVIDERS: Family Provider Family Medicine; PCP Family Medicine; Referring Provider Family Medicine; Visit Provider Family Medicine
DX: M79.675 Pain in left toe(s) (principal); M20.12 Hallux valgus (acquired), left foot
CPT/HCPCS: 73660

== ENCOUNTER → 2024-11-16 14:22 | Outpatient (CLI) | payer BC, SELFPAY ==
[2024-08-03 10:46] VITALS: BMI 21.4
--- NOTE | 2024-11-16 14:22 | DI.CT.S_ITS ---
PROCEDURE: CT CHEST WO CON INDICATIONS: nodules follow up TECHNIQUE: Noncontrast 5 mm thick sections acquired from the pulmonary apices to the posterior costophrenic angles. 1 mm lung window, 5 mm thick coronal and sagittal and 7 mm axial MIP reformats were then acquired. For radiation dose reduction, the following was used: automated exposure control, adjustment of mA and/or kV according to patient size. COMPARISON: [facility], CT, CT CHEST HIGH RESOLUTION, 07/20/2024, 11:01. FINDINGS: Image quality: Diagnostic. Lower Neck: No enlarged lymph nodes. Thyroid: No thyroid nodules which require sonographic follow up, per consensus guidelines. Axillae: No enlarged lymph nodes. Chest Wall: Unremarkable. Degenerative changes noted involving the right sternoclavicular joint Bones: Stable scoliosis status post fusion and stabilization darwin. Lungs and Pleura: Persistent right upper lobe tree-in-bud pattern remains unchanged from the prior. No new nodules or infiltrate. Pleural spaces are clear. Trace biapical pulmonary scarring or pleural thickening. Also stable. Heart: Heart size is normal. No pericardial effusion. Thoracic Vessels: Ascending aorta measures 4 cm in diameter, stable from. Mediastinum and Priscilla: No enlarged lymph nodes. Esophagus: No wall thickening. No hiatal hernia. Upper Abdomen: Visualized upper abdomen solid organs and bowel loops appear normal. IMPRESSION: Stable right upper lobe tree-in-bud infiltrate likely infectious or inflammatory but unchanged from the prior Stable arthritic changes associated with the right sternoclavicular joint Approved by: Krishna Lamb M.D. on 11/16/2024 at 15:57
== END ==
PROVIDERS: Family Provider Family Medicine; PCP Family Medicine; Referring Provider Internal Medicine Critical Care Medicine; Visit Provider Internal Medicine Critical Care Medicine
DX: R91.8 Other nonspecific abnormal finding of lung field (principal)
CPT/HCPCS: 71250

== ENCOUNTER → 2025-05-13 09:53 | Outpatient (CLI) | payer BC, SELFPAY ==
[2024-08-03 10:46] VITALS: BMI 21.4
[2025-05-13 10:17] LABS: Add Manual Diff / Slide Review NO; Hematocrit 41.9 % (36-46); Hemoglobin 14.3 g/dL (12.0-16.0); Lymphocytes Absolute Auto 2000 /uL (1100-4500); Mean Corpuscular HGB Conc 34.2 % (30-36); Mean Corpuscular Hemoglobin 29.4 PG (26-34); Mean Corpuscular Volume 85.8 fL (80-100); Platelet Count 223 X10^3/uL (150-400)
[2025-05-13 10:45] LABS: Alanine Aminotransferase 31 IU/L (<35); Albumin 4.2 g/dL (3.5-5.0); Albumin Globulin Ratio 1.6 (1.0-2.8); Alkaline Phosphatase 80 U/L (38-126); Blood Urea Nitrogen 18 mg/dL (7-17); Calcium 9.1 mg/dL (8.4-10.2); Carbon Dioxide 28 mmol/L (22-32); Chloride 100 mmol/L (98-107); Cholesterol 222 mg/dL (140-199); Estimated Glomerular Filt Rate > 60 mL/min (>60); Globulin 2.6 g/dL (1.7-4.1); Glucose 84 mg/dL (70-99); HDL Cholesterol 52 mg/dL (40-60); HEMOLYSIS < 15 (0-50); Potassium 4.1 mmol/L (3.4-5.1); Sodium 136 mmol/L (137-145); Total Protein 6.8 g/dL (6.3-8.2); Triglycerides 131 mg/dL (35-150)
[2025-05-13 11:01] LABS: Vitamin D 25 Hydroxy (D3) 52.9 ng/mL (30.0-100.0)
[2025-05-13 11:14] LABS: TSH w/ Reflex to FT4 0.63 uIU/mL (0.47-4.68)
== END ==
LOC: LAB 09:54
PROVIDERS: Family Provider Family Medicine; PCP Family Medicine; Referring Provider Family Medicine; Visit Provider Family Medicine
DX: Z00.00 Encounter for general adult medical examination without abnormal findings (principal); E03.9 Hypothyroidism, unspecified; I47.10 Supraventricular tachycardia, unspecified
CPT/HCPCS: 36415; 80053; 80061; 82306; 84443; 85025

== ENCOUNTER → 2025-06-13 12:54 | Outpatient (CLI) | payer BC, SELFPAY ==
[2024-08-03 10:46] VITALS: BMI 21.4
--- NOTE | 2025-06-13 12:55 | DI.CT.S_ITS ---
PROCEDURE: CT CHEST WO CON INDICATIONS: RUL nodules TECHNIQUE: Noncontrast 5 mm thick sections acquired from the pulmonary apices to the posterior costophrenic angles. 1 mm lung window, 5 mm thick coronal and sagittal and 7 mm axial MIP reformats were then acquired. For radiation dose reduction, the following was used: automated exposure control, adjustment of mA and/or kV according to patient size. COMPARISON: [facility], CT, CT CHEST WO CON, 11/16/2024, 14:28. FINDINGS: Image quality: Diagnostic. Lower Neck: No enlarged lymph nodes. Thyroid: No thyroid nodules which require sonographic follow up, per consensus guidelines. Axillae: No enlarged lymph nodes. Chest Wall: Unremarkable. Bones: Convex right scoliosis, status post thoracic fusion. Pectus excavatum. Lungs and Pleura: No pneumothorax or pleural effusions. Bibasilar atelectasis. Stable tree-in-bud nodules and centrilobular nodules in the dependent right upper lobe. Heart: Heart size is normal. No pericardial effusion. Thoracic Vessels: Stable ascending aortic aneurysm measuring 4 cm. Mediastinum and Priscilla: No enlarged lymph nodes. Esophagus: No wall thickening. No hiatal hernia. Upper Abdomen: Visualized upper abdomen solid organs and bowel loops appear normal. IMPRESSION: Stable tree-in-bud and centrilobular nodules in the dependent right upper lobe. 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 Stable ascending aortic aneurysm measuring 4 cm. Continued imaging surveillance should be considered. Dictated by: Howard Duffy M.D. on 06/13/2025 at 14:37 Approved by: Howard Duffy M.D. on 06/13/2025 at 14:40
== END ==
LOC: CT 12:55
PROVIDERS: Family Provider Family Medicine; PCP Family Medicine; Referring Provider Family Medicine; Visit Provider Internal Medicine Critical Care Medicine
DX: R91.8 Other nonspecific abnormal finding of lung field (principal); I71.40 Abdominal aortic aneurysm, without rupture, unspecified; J98.11 Atelectasis
CPT/HCPCS: 71250